=== PATIENT | male | born 1940 | race Caucasian/White ===

== ENCOUNTER → 2020-02-21 16:15 | Outpatient (CLI) | payer MEDICARE, SELFPAY ==
--- NOTE | ~2020-02-21 | XR_ITS ---
EXAMINATION: XR hand RT min 3V INDICATION: Trigger finger, hand pain TECHNIQUE: Three views of the right hand are obtained. COMPARISON: 06/14/2013 FINDINGS: There is unchanged moderate osteoarthritis at the first carpometacarpal joint. No fracture is identified. There is mild osteoarthritis in multiple interphalangeal joints. Calcified atheroscler osis is noted. IMPRESSION: 1. 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 Reviewed, dictated and finalized at location A.
--- NOTE | ~2020-02-21 | XR_ITS ---
EXAMINATION: XR finger 2nd RT min 2V INDICATION: Trigger finger TECHNIQUE: Four views of the right second finger are obtained. COMPARISON: None available FINDINGS: Bone alignment is normal. There is no fracture. There is moderate osteoarthritis of the int erphalangeal joint. Calcified atherosclerosis is noted. IMPRESSION: 1. Mild osteoarthritis without acute osseous abnormality. Reviewed, dictated and finalized at location A.
== END ==
PROVIDERS: PCP Internal Medicine; Visit Provider Specialist
DX: M65.30 Trigger finger, unspecified finger (principal); M19.041 Primary osteoarthritis, right hand
CPT/HCPCS: 73130; 73140

== ENCOUNTER 2025-04-05 10:33 | Outpatient (CLI) | payer MEDICARE, SELFPAY ==
--- OUTSIDE RECORDS SUMMARY | 2025-04-05 11:04 | XMS_ITS | Clinical Summary ---
Author Organization [facility] Address [address] [place] [address] Care Team Providers Care Rn Renal Name Role Phone Morteza Rudolph MD Primary Care Provider [phone] Source Comments [facility],non-owned Affiliates and Associated Physician Practices is amultiple site organization consisting of ambulatory clinics and hospital sitesin [place], [place], [place] and [place]. This disclosure is being madepursuant to the Care Everywhere program and may not contain all information available regarding this patient. Last updated 18.[facility] Allergies Active Allergy Reactions Criticality Noted Date Comments Grapeseed Extract Anaphylaxis High 12/05/2018 Medications * Be aware that medications may not be up to date on this document. Alwaysverify current medications with the patient. vardenafil (LEVITRA) 10 MG tablet Take 10 mg by mouth once as needed for Other Active Co-Enzyme Q-10 100 MG Take by mouth once daily Active metoprolol succinate XL 24hr (TOPROL XL) 25 MG tablet Take 12.5 mg by mouth 2 times daily Active B Complex-Biotin- FA (B COMPLETE PO) Take by mouth once daily Active aspirin EC (ECOTRIN) 81 MG tablet Take 81 mg by mouth once daily Active CRANBERRY-VITAM IN C-VITAMIN E PO Take 1,600 mg by mouth once daily Active lutein 20 MG capsule Take 20 mg by mouth once daily Active tamsulosin (FLOMAX) 0.4 MG capsule Take 0.4 mg by mouth once daily At the same time every day after a meal. 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 Gender Identity Not on file Sexual Orientation Not on file Last Filed Vital Signs Vital Sign Reading Time Taken Comments Blood Pressure 142/58 12/06/2018 11:18 AM CDT Pulse 97 12/06/2018 11:18 AM CDT Temperature 36.8 C (98.3 F) 12/06/2018 7:34 AM CDT Respiratory Rate 18 12/06/2018 11:18 AM CDT Oxygen Saturation 99% 12/06/2018 11:18 AM CDT Inhaled Oxygen Concentration - - Weight 75.8 kg (167 lb 3.2 oz) 12/05/2018 7:42 A M CDT Height 165.1 cm (5' 5) 12/05/2018 7:42 AM CDT Body Mass Index 27.82 12/05/2018 7:42 AM CDT Plan of Treatment Health Maintenance Due Date Last Done Comments DTAP/TDAP/TD VACCINES (1 - Tdap) 1960 PNEUMOCOCCAL VACCINE 50+ (1 of 1 - PCV) 1991 ZOSTER VACCINE (1 of 2) 1991 Respiratory Syncytial Virus (RSV) Vaccine Pt: or over 60 yrs (1 - 1-dose 75+ series) 2016 COVID-19 VACCINE ( - 2023-2 5 season) 2024 DEPRESSION SCREENING 08/02/2024 INFLUENZA VACCINE (#1) 2025 05/18/2018 HEPATITIS B VACCINE Aged Out No longe r eligible based on patient's age to complete this topic HIB VACCINE Aged Out No longer eligi ble based on patient's age to complete this topic HPV VACCINE Aged Out No longer eligi ble based on patient's age to complete this topic MENINGOCOCCAL (Group B) VACC INE SHARED DECISION-MAKING Aged Out No longer eligibl e based on patient's age to complete this topic MENINGOCOCCAL GROUPS A/C/Y/W VACCINE Aged Out No longer eligible b ased on patient's age to complete this topic Insurance [facility] [employer] Advance Directives * Full Code (Latest Code Status on File) Date Activated Date Inactivated Comments 12/05/2018 3:00 PM 12/06/2018 12:43 PM Care Teams Rn Renal Relationship Specialty Start Date End Date Morteza Rudolph MD PCP - General 05/16/08
--- OUTSIDE RECORDS SUMMARY | 2025-04-05 11:04 | XMS_ITS | Clinical Summary ---
Author Organization [facility] Address [address] [place] [address] Care Team Providers Care Alodize Machine Operator Name Role Phone Morteza Rudolph MD Primary Care Provider [phone] Morteza Rudolph DO Unavailable [phone] Allergies No known active allergies Medications cranberry conc-ascorbic acid 12,600-20 mg capsule 0 0 7 Active metoprolol (LOPRESSOR) 5 mg/5 mL injection inject 5 milliliter by intravenous route every 2 minutes for 3 doses 0 ampule 0 7 Active tamsulosin (FLOMAX) 0.4 mg capsule,extend ed release 24hr take 1 capsule by oral route every day 1/2 hour following the same meal each day 0 0 7 Active b complex vitamins (B COMPLETE) tablet 0 0 7 Active naproxen (NAPROSYN) 500 mg tablet take 1 tablet by oral route every day with food 60 3 7 Active lutein 20 mg capsule 20 mg. 0 0 7 Active vardenafil (LEVITRA) 10 mg tablet take 1 tablet by oral route every day as needed approximately 1 hour before sexual activity 0 0 7 Active aspirin (ASPIRIN LOW DOSE) 81 mg tablet take 1 tablet by oral route every day 0 0 7 Active atorvastatin (LIPITOR) 10 mg tablet take 1 tablet by oral route every day 0 0 7 Active coenzyme Q10 (CO Q-10) 100 mg capsule 100 mg. 0 0 7 Active vitamin B89-fylqp acid (FOLTRATE) 0.5-1 mg tablet take 1 tablet by oral route every day 0 0 7 Active Active Problems Problem Noted Date Diagnosed Date Abdominal hernia 12/18/2014 Abscess of chest wall 12/18/2014 Pain of sternum 06/12/2014 History of coronary artery bypass surgery 2013 Aortic valve stenosis 03/14/2014 Medical History Medical History Date Comments Malignant neoplasm of skin Cance r, skin; Comments: LOU 12/17/2016 - Hx Other Medical Heart Valve Rep lacment; Comments: LOU 12/17/2016 - Social History Tobacco Use Types Packs/Day Years Used Date Smoking Tobacco: Never Assessed Sex and Gender Information Value Date Recorded Sex Assigned at Not on file 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 Gender Identity Not on file Sexual Orientation Not on file Obstetrics History Last Filed Vital Signs Vital Sign Reading Time Taken Comments Blood Pressure 126/74 06/20/2019 2:46 PM WELCOME CENTER ATTENDANT Pulse 76 06/20/2019 2:46 PM WELCOME CENTER ATTENDANT Temperature 36.6 C (97.9 F) 06/20/2019 2:46 PM WELCOME CENTER ATTENDANT Respiratory Rate 14 06/20/2019 2:46 PM WELCOME CENTER ATTENDANT Oxygen Saturation - - Inhaled Oxygen Concentration - - Weight 76.2 kg (168 lb) 06/20/2019 2:46 PM WELCOME CENTER ATTENDANT Height 157.5 cm (5' 2) 06/20/2019 2:46 PM WELCOME CENTER ATTENDANT Body Mass Index 30.73 06/20/2019 2:46 PM WELCOME CENTER ATTENDANT Plan of Treatment Not on file Insurance [facility] [place] [address] Care Teams Alodize Machine Operator Relationship Specialty Start Date End Date Morteza Rudolph MD PCP - General 04/13/17 Morteza Rudolph DO [address] [place] [id number] 04/13/17
--- OUTSIDE RECORDS SUMMARY | 2025-04-05 11:04 | XMS_ITS | Encounter Summary ---
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 Gender Identity Not on file Sexual Orientation Not on file documented as of this encounter Plan of Treatment Not on file documented as of this encounter Procedures Procedure Name Priority Date/Time Associated Diagnosis Comments DERMATOPATHOLOGY Routine 01/03/2020 12:0 0 AM CDT documented in this encounter Results * DERMATOPATHOLOGY (01/03/2020 12:00 AM CDT) Case Report Dermatopathology Report Case: [id number] Authorizing Provider: Sharda Upton MD Collected: 01/03/2020 12:00 AM Ordering Location: [facility] Received: 01/04/2020 12:38 PM Pathologist: Kurt Brice MD Specimen: Skin, left nasal dorsum 0 5:25 PM CDT DERMATOPATHOLOGY LABORATORY Final Diagnosis Specimen A. SKIN, left nasal dorsum: BASAL CELL CARCINOMA (C44.311) (see microscopic description and comment) 0 5:25 PM CDT DERMATOPATHOLOGY LABORATORY at 1725 CDT Clinical History Basal cell carcinoma vs dermal nevus vs folliculitis. 0 5:25 PM CDT DERMATOPATHOLOGY LABORATORY Gross Description Specimen A: Received is one formalin filled container labeled with the patient's name and designated left nasal dorsum. The specimen consists of a shave biopsy measuring 3x3x1 mm. Jar 0. 0 5:25 PM CDT DERMATOPATHOLOGY LABORATORY Microscopic Description Specimen A. SKIN, left nasal dorsum: The specimen consists of aggregates of basaloid cells, located within the superficial dermis, with high nuclear to cytoplasmic ratio and peripheral palisading. COMMENT: The small size of the specimen limits subtyping of the lesion. Additional deeper sections were obtained and reviewed. 0 5:25 PM CDT DERMATOPATHOLOGY LABORATORY Disclaimer An external and internal positive and negative controls are appropriate for the histochemical, immunohistochemical and immunofluorescence stain(s) in this case (if any), except where stated explicitly. The performance characteristics of the stain(s) cited in this report were developed and its performance characteristic determined by the Dermatopathology Laboratory at [facility], directed by Dr. Aurelio Brice. These tests need not be, and therefore are not, approved by the [place] Food and Drug Administration. The tests are used for clinical purposes. Billing Codes Specimen Charges Stain Charges 30804 1 0 5:25 PM CDT DERMATOPATHOLOGY LABORATORY Embedded Images 0 5:25 PM CDT DERMATOPATHOLOGY LABORATORY Pathology/Cytolog y TISSUE SPECIMEN FROM SKIN / Unknown 01/03/2020 01/04/2020 12:38 PM CDT us Sharda Upton MD LAB - PATHOLOGY/CYTOLOGY ORDERABLES Final Result DERMATOPATHOLOGY LABORATORY [facility] - Department of Dermatology [facility]/[address] [place] [address], [facility] [phone] documented in this encounter Visit Diagnoses Not on filedocumented in this encounter Care Teams Warehouse Shipping Associate Relationship Specialty Start Date End Date Morteza Rudolph MD PCP - General 05/16/08 documented as of this encounter
== END 2025-04-05 10:34 | disposition home or self-care (01) ==
PROVIDERS: PCP Internal Medicine; Visit Provider Internal Medicine Cardiovascular Disease
DX: I25.10 Atherosclerotic heart disease of native coronary artery without angina pectoris (principal)
CPT/HCPCS: 83695

== ENCOUNTER 2025-06-22 09:33 | Outpatient (CLI) | payer MEDICARE, SELFPAY ==
--- OUTSIDE RECORDS SUMMARY | 2025-06-22 09:37 | XMS_ITS | Clinical Summary ---
Author Organization [facility] Address [address] [place] [address] Care Team Providers Care Shutdown Planner Name Role Phone Morteza Rudolph MD Primary Care Provider [phone] Morteza Rudolph DO Unavailable [phone] Allergies No known active allergies Medications cranberry [...] 100 mg. 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 Gender Identity Not on file Sexual Orientation Not on file Last Filed Vital Signs Vital Sign Reading Time Taken Comments Blood Pressure 126/74 06/20/2019 2:46 PM FUNERAL LIMOUSINE DRIVER Pulse 76 06/20/2019 2:46 PM FUNERAL LIMOUSINE DRIVER Temperature 36.6 C (97.9 F) 06/20/2019 2:46 PM FUNERAL LIMOUSINE DRIVER Respiratory Rate 14 06/20/2019 2:46 PM FUNERAL LIMOUSINE DRIVER Oxygen Saturation - - Inhaled Oxygen Concentration - - Weight 76.2 kg (168 lb) 06/20/2019 2:46 PM FUNERAL LIMOUSINE DRIVER Height 157.5 cm (5' 2) 06/20/2019 2:46 PM FUNERAL LIMOUSINE DRIVER Body Mass Index 30.73 06/20/2019 2:46 PM FUNERAL LIMOUSINE DRIVER Plan of Treatment Not on file Insurance [facility] MEDICARE ADVANTAGE Care Teams Shutdown Planner Relationship Specialty Start Date End Date Morteza Rudolph MD PCP - General 04/13/17 Morteza Rudolph DO [address] [place] [id number] 04/13/17
--- OUTSIDE RECORDS SUMMARY | 2025-06-22 09:37 | XMS_ITS | Encounter Summary ---
Author Organization [facility] Address [address] [place] [address] Care Team Providers Care Rail Transit Operator Name Role Phone Morteza Rudolph MD Primary Care Provider [phone] Encounter Details Date Type Department Care Team (Late st Contact Info) Description 01/04/2020 Lab Requisition [facility] Lab [address] [place] [address] [place] [address] [place] [address] Social History Tobacco Use Types Packs/Day Years Used Date Smoking Tobacco: Never Assessed Sex and Gender Information Value Date Recorded Sex Assigned at Not on file 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 Gender Identity Not on file Sexual Orientation Not on file documented as of this encounter Plan of Treatment Not on file documented as of this encounter Procedures Procedure Name Priority Date/Time Associated Diagnosis Comments DERMATOPATHOLOGY Routine 01/03/2020 12:0 0 AM CDT documented in this encounter Results * DERMATOPATHOLOGY (01/03/2020 12:00 AM CDT) Case Report Dermatopathology Report Case: [id number] Authorizing Provider: Sharda Upton MD Collected: 01/03/2020 12:00 AM Ordering Location: [facility] Lab Received: 01/04/2020 12:38 PM Pathologist: [...] characteristic determined by the Dermatopathology Laboratory at [facility], directed by Dr. Aurelio Brice. These tests need not be, and therefore are not, approved by the [place] Food and Drug Administration. The tests are used for clinical purposes. Billing Codes Specimen Charges Stain Charges 69914 1 0 5:25 PM CDT DERMATOPATHOLOGY LABORATORY Embedded Images 0 5:25 PM CDT DERMATOPATHOLOGY LABORATORY Pathology/Cytolog y TISSUE SPECIMEN FROM SKIN / Unknown 01/03/2020 01/04/2020 12:38 PM CDT us Sharda Upton MD LAB - PATHOLOGY/CYTOLOGY ORDERABLES Final Result DERMATOPATHOLOGY LABORATORY [facility] - Department of Dermatology Decision Support Manager Center/[address] [place] [address], [facility] [phone] documented in this encounter Visit Diagnoses Not on filedocumented in this encounter Care Teams Rail Transit Operator Relationship Specialty Start Date End Date Morteza Rudolph MD PCP - General 05/16/08 documented as of this encounter
--- OUTSIDE RECORDS SUMMARY | 2025-06-22 09:37 | XMS_ITS | Clinical Summary ---
Author Organization [facility] Address [address] [facility] [place] [address] Care Team Providers Care Elect Equip Maint Eng Name Role Phone Morteza Rudolph MD Primary Care Provider [phone] Source Comments [facility],non-owned Affiliates and Associated Physician Practices is amultiple site organization consisting of ambulatory clinics and hospital sitesin [place], [place], [place] and [place]. This disclosure is being madepursuant to the Care Everywhere program and may not contain all information available regarding this patient. Last updated 18.[facility] Allergies Active Allergy Reactions Criticality Noted Date [...] Problem Noted Date Diagnosed Date CAD in table mountain artery 12/05/2018 Immunizations Immunization Administration Dates Next Due INFLUENZA VACCINE, QUADR. 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 [id number] [place] [id number] Advance Directives * Full Code (Latest Code Status on File) Date Activated Date Inactivated Comments 12/05/2018 3:00 PM 12/06/2018 12:43 PM Care Teams Elect Equip Maint Eng Relationship Specialty Start Date End Date Morteza Rudolph MD PCP - General 05/16/08
--- OUTSIDE RECORDS SUMMARY | 2025-06-22 09:38 | XMS_ITS | Data Portability ---
Author Organization [place] [facility], Main Office Address [address] [place] [address] Care Team Providers Care Wrapper Stitcher Name Role Phone DAVIDSON RUDOLPH Primary Care Provider [phone] DAVIDSON RUDOLPH Referring Provider [phone] Assessment Encounter Date Assessment Date Assessment LastModified by Organization Details LastModified Time 03/08/2023 03/08/2023 Continue current therapy blood work has been ordered diagnosis have been discussed all questions have been answered clinically stable follow-up 6 months [email or web address] Not available 03/08/2023 11:14:44 07/21/2023 07/21/2023 Impression: 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 I have discussed options with him. I have offered him a cortisone shot. He had a shot in his elbows years ago which cause hiccups today after. He has had cortisone shots for trigger fingers and his hands and they were very painful and never seemed to help the end up having A1 brenna releases there on most of his digits. I have discussed risk of side effects including risk of infection with him. He would like to try this at my recommendation. After ChloraPrep prep, 10 cc of clear light yellow fluid were aspirated from the right knee and 80 mg give Kenalog and 4 cc 0.5% ropivacaine injected. I had a long discussion with him explaining his condition to him and explained that activities involve weight-bearing on the bent knee are going to tend aggravate this problem such as heels ladders steps squatting stooping. Physical therapy aggravated the problem because they were working on quadriceps strengthening and I would recommend he go therapy 1 more time with a new prescription to work on core strengthening hip abduction external rotation strengthening and hamstring and quadriceps stretching but no quadriceps strengthening. I would recommend he do this exercise program for both knees long-term. I will see him back in 6 weeks to assess his progress. If he is doing much better he can simply call us and let us know that he is improved. 30 minutes were spent total care this patient more than half the time spent in qeej-cd-ubnj care. Not available 07/21/2023 10:12:24 09/02/2023 09/02/2023 Impression: Patient has moderately severe patellofemoral arthritis this right knee. He has no evidence of neurogenic weakness in his quadriceps and I believe his giving way is due to be patellofemoral arthritis causing pain. I explained to him at length how the pressure behind the kneecap is 6-7 times body weight in a deep squat and is very common for patients to note a buckling sensation when the quadriceps reflexively suddenly eases up due to the discomfort during a deep squat. I have discussed other strategies with him which would include losing weight. We discussed avoiding simple carbs and sugary foods. We discussed a course of physical therapy focusing on hip abduction core strengthening and hamstring quadriceps stretching. He could consider taking a low-dose nonsteroidal anti-inflammatory medication. patient has his eye age are at higher risk for side effects. 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 Occasionally will take couple of ibuprofen which she did yesterday. I would recommend that he discuss this with Dr. Rudolph who is going to be most from there with his past medical history. He is planning on a snow shoeing excursion which will be fairly level ground in late September. I have explained him that stairs and hills will both cause high pressures on the kneecap and exacerbate his symptoms and these can be avoided that would be beneficial for him. I will see him back in 5 weeks assess his progress and would like another cortisone shot that time we can give that to him. 30 minutes were spent total care this patient more than half the time spent in [id number]-[id number] care. Not available 09/02/2023 10:46:58 Plan of Treatment Reminders Order Date Submit Date Provider Last Modified By Organization Details Last Modified Time Details Appointments None recorded. Lab CMP, serum or plasma 2022 023 [facility] (Lab), [address] [place], [address], 3 13:37:36 lipid panel, serum 2022 023 [facility] (Lab), [address] [place], [address], 3 13:37:46 CBC w/ auto diff 2022 023 [facility] (Lab), [address] [place], [address], 12:55:43 Referral None recorded. Procedures injection/a spiration joint/bursa (PROC) - in office procedure, administere d by provider 2022 023 [email or web address] In-Office Order, Internal Use Only DO Not Attach Compendium DO Not Attach Compendium, Do Not Delete/merge, [id number] 3 10:04:04 Surgeries None recorded. Imaging XR, knee 2022 023 [email or web address] [facility] [place], [address], [place], [address], 3 14:13:48 Medication Orders Kenalog 10 mg/mL suspension for injection 2022 023 [id number], [address], [place], [place], [id number], 3 13:06:36 ropivacaine (PF) 5 mg/mL (0.5 %) injection solution 2022 023 [id number], [address], [place], [place], [id number], 3 13:06:36 Patient TargetsNo targets recorded. Patient InstructionsNo instructions recorded. Reason for Referral None Reported. Results Created Date Observation Date Name Description Value Unit Range Abnormal Flag Note LastModifiedBy Organization Detail LastModifiedTime 03/08/2003/08/2023 CBC/C OMPLE TE BLD COUNT W/DIF F white blood cells 6.1 x10'3 /uL 4.2-10 .8 Not Available [facility] (Lab) [address] [place], [address], 03/08/2023 12:55:43 03/08/20 23 03/08/2023 CBC/C OMPLE TE BLD COUNT W/DIF F red blood cells 4.08 x10'6 /uL 4.10-5 .80 low Not Available [facility] (Lab) [address] [place], [address], 03/08/2023 12:55:43 03/08/20 23 03/08/2023 CBC/C OMPLE TE BLD COUNT W/DIF F hemoglobin 12.4 g/dL 13.2-1 7.0 low Not Available [facility] (Lab) [address] [place], [address], 03/08/2023 12:55:43 03/08/20 23 03/08/2023 CBC/C OMPLE TE BLD COUNT W/DIF F hematocrit 38.2 % 39.3-5 0.0 low Not Available [facility] (Lab) [address] [place], [address], 03/08/2023 12:55:43 03/08/20 23 03/08/2023 CBC/C OMPLE TE BLD COUNT W/DIF F mean red cell volume 93.6 fL 80.0-9 7.0 Not Available [facility] (Lab) [address] [place], [address], 03/08/2023 12:55:43 03/08/20 23 03/08/2023 CBC/C OMPLE TE BLD COUNT W/DIF F mean red cell hemoglobin 30.4 pg 27.0-3 3.0 Not Available [facility] (Lab) [address] [place], [address], 03/08/2023 12:55:43 03/08/20 23 03/08/2023 CBC/C OMPLE TE BLD COUNT W/DIF F mean RBC HGB concentratio n 32.5 g/dL 31.0-3 6.0 Not Available [facility] (Lab) [address] [place], [address], 03/08/2023 12:55:43 03/08/20 23 03/08/2023 CBC/C OMPLE TE BLD COUNT W/DIF F red cell distribution width 12.5 % 11.8-1 5.5 Not Available [facility] (Lab) [address] [place], [address], 03/08/2023 12:55:43 03/08/20 23 03/08/2023 CBC/C OMPLE TE BLD COUNT W/DIF F platelets 163 x10'3 /uL 150-40 0 Not Available [facility] (Lab) [address] [place], [address], 03/08/2023 12:55:43 03/08/20 23 03/08/2023 CBC/C OMPLE TE BLD COUNT W/DIF F mean platelet volume 12.2 fL 9.0-12 .4 Not Available [facility] (Lab) [address] [place], [address], 03/08/2023 12:55:43 03/08/20 23 03/08/2023 CBC/C OMPLE TE BLD COUNT W/DIF F neutrophils 46.7 % 39.0-7 2.0 Not Available [facility] (Lab) [address] [place], [address], 03/08/2023 12:55:43 03/08/20 23 03/08/2023 CBC/C OMPLE TE BLD COUNT W/DIF F lymphocytes 40.4 % 16.0-4 7.0 Not Available [facility] (Lab) [address] [place], [address], 03/08/2023 12:55:43 03/08/20 23 03/08/2023 CBC/C OMPLE TE BLD COUNT W/DIF F monocytes 8.9 % 5.0-12 .0 Not Available [facility] (Lab) [address] [place], [address], 03/08/2023 12:55:43 03/08/20 23 03/08/2023 CBC/C OMPLE TE BLD COUNT W/DIF F eosinophils 3.5 % 1.0-7. 0 Not Available [facility] (Lab) [address] [place], [address], 03/08/2023 12:55:43 03/08/20 23 03/08/2023 CBC/C OMPLE TE BLD COUNT W/DIF F basophils 0.3 % 0.0-2. 0 Not Available [facility] (Lab) [address] [place], [address], 03/08/2023 12:55:43 03/08/20 23 03/08/2023 CBC/C OMPLE TE BLD COUNT W/DIF F immature granulocytes 0.2 % 0.00-0 .50 Not Available [facility] (Lab) [address] [place], [address], 03/08/2023 12:55:43 03/08/20 23 03/08/2023 CBC/C OMPLE TE BLD COUNT W/DIF F neutrophils, absolute count 2.84 x10'3 /uL 1.5-8. 0 Not Available [facility] (Lab) [address] [place], [address], 03/08/2023 12:55:43 03/08/20 23 03/08/2023 CBC/C OMPLE TE BLD COUNT W/DIF F lymphocytes, absolute count 2.45 x10'3 /uL 1.07-3 .43 Not Available [facility] (Lab) [address] [place], [address], 03/08/2023 12:55:43 03/08/20 23 03/08/2023 CBC/C OMPLE TE BLD COUNT W/DIF F monocytes, absolute count 0.54 x10'3 /uL 0.29-0 .99 Not Available [facility] (Lab) [address] [place], [address], 03/08/2023 12:55:43 03/08/20 23 03/08/2023 CBC/C OMPLE TE BLD COUNT W/DIF F eosinophils, absolute count 0.21 x10'3 /uL 0.02-0 .53 Not Available [facility] (Lab) [address] [place], [address], 03/08/2023 12:55:43 03/08/20 23 03/08/2023 CBC/C OMPLE TE BLD COUNT W/DIF F basophils, absolute count 0.02 x10'3 /uL 0.01-0 .08 Not Available [facility] (Lab) [address] [place], [address], 03/08/2023 12:55:43 03/08/2003/08/2023 CBC/C OMPLE TE BLD COUNT W/DIF F immature granulocytes ,absolute 0.01 x10'3 /uL 0.00-0 .05 Not Available [facility] (Lab) [address] [place], [address], 03/08/2023 12:55:43 03/08/20 23 03/08/2023 CBC/C OMPLE TE BLD COUNT W/DIF F nucleated red blood cells 0.0 % -0 Not Available [facility] (Lab) [address] [place], [address], 03/08/2023 12:55:43 03/08/20 23 03/08/2023 CBC/C OMPLE TE BLD COUNT W/DIF F NRBC# 0.00 x10'3 /uL Not Available [facility] (Lab) [address] [place], [address], 03/08/2023 12:55:43 03/08/20 23 03/08/2023 COMPR EHENS GONSALO METAB OLIC PANEL sodium 139 mmol/ L 137-14 5 Not Available [facility] (Lab) [address] [place], [address], 03/08/2023 13:37:36 03/08/20 23 03/08/2023 COMPR EHENS GONSALO METAB OLIC PANEL potassium 4.8 mmol/ L 3.5-5. 1 Not Available [facility] (Lab) [address] [place], [address], 03/08/2023 13:37:36 03/08/20 23 03/08/2023 COMPR EHENS GONSALO METAB OLIC PANEL chloride 105 mmol/ L 98-107 Not Available [facility] (Lab) [address] [place], [address], 03/08/2023 13:37:36 03/08/20 23 03/08/2023 COMPR EHENS GONSALO METAB OLIC PANEL carbon dioxide 31 mmol/ L 22-30 high Not Available [facility] (Lab) [address] [place], [address], 03/08/2023 13:37:36 03/08/20 23 03/08/2023 COMPR EHENS GONSALO METAB OLIC PANEL anion gap 7.8 mmol/ L 14-22 low Not Available [facility] (Lab) [address] [place], [address], 03/08/2023 13:37:36 03/08/20 23 03/08/2023 COMPR EHENS GONSALO METAB OLIC PANEL glucose 118 mg/dL 70-99 high Not Available [facility] (Lab) [address] [place], [address], 03/08/2023 13:37:36 03/08/20 23 03/08/2023 COMPR EHENS GONSALO METAB OLIC PANEL BUN 23 mg/dL 8-19 high Not Available [facility] (Lab) [address] [place], [address], 03/08/2023 13:37:36 03/08/20 23 03/08/2023 COMPR EHENS GONSALO METAB OLIC PANEL creatinine 0.73 mg/dL 0.66-1 .25 Not Available [facility] (Lab) [address] [place], [address], 03/08/2023 13:37:36 03/08/20 23 03/08/2023 COMPR EHENS GONSALO METAB OLIC PANEL GFR >60 Refer ence Range : [place]more ge GFR Healt hy Adult : >60 mL/mi n/1.7 3 m2 Chron ic Kidne y Disea se: 15-60 mL/mi n/1.7 3 m2 Kidne y Failu re: <15/m L/min /1.73 m2 www.n iddk. nih.g ov The MDRD study equat ion has not been valid ated in child olesya <18 years of age; pregn ant women ; the elder ly >85 years of age; or in some racia l or ethni c subgr oups, such as Hisoh nics. Outsi de the valid ated keri eters , estim ated GFR is less accur ate, requi ring clini miles judgm ent on a case- by-ca se basis . Clini miles inter preta tion for other races and ages must be made by the clini shan. The MDRD study equat ion has not been valid ated for the evalu ation of serum creat inine relat ed to nutri lindsey l statu s or medic ation usage . For perso ns <18 years of age, a pedia tric GFR calcu lator is avail able on the [facility] websi te: https ://neelam philip.o any/micah ofess ional s/kdo qi/gf r_cal culat or Not Available [facility] (Lab) [address] [place], [address], 03/08/2023 13:37:36 03/08/20 23 03/08/2023 COMPR EHENS GONSALO METAB OLIC PANEL alkaline phosphatase 59 U/L 38-126 Not Available [facility] (Lab) [address] [place], [address], 03/08/2023 13:37:36 03/08/20 23 03/08/2023 COMPR EHENS GONSALO METAB OLIC PANEL alanine aminotransfe rase 15 U/L 0-50 Not Available [facility] (Lab) [address] [place], [address], 03/08/2023 13:37:36 03/08/20 23 03/08/2023 COMPR EHENS GONSALO METAB OLIC PANEL aspartate aminotransfe rase 28 U/L 15-46 Not Available [facility] (Lab) [address] [place], [address], 03/08/2023 13:37:36 03/08/20 23 03/08/2023 COMPR EHENS GONSALO METAB OLIC PANEL bilirubin, total 0.40 mg/dL 0.20-1 .30 Not Available [facility] (Lab) [address] [place], [address], 03/08/2023 13:37:36 03/08/20 23 03/08/2023 COMPR EHENS GONSALO METAB OLIC PANEL calcium 8.9 mg/dL 8.4-10 .2 Not Available [facility] (Lab) [address] [place], [address], 03/08/2023 13:37:36 03/08/20 23 03/08/2023 COMPR EHENS GONSALO METAB OLIC PANEL total protein 6.7 g/dL 6.3-8. 2 Not Available [facility] (Lab) [address] [place], [address], 03/08/2023 13:37:36 03/08/20 23 03/08/2023 COMPR EHENS GONSALO METAB OLIC PANEL albumin 4.1 g/dL 3.0-4. 4 Not Available [facility] (Lab) [address] [place], [address], 03/08/2023 13:37:36 03/08/20 23 03/08/2023 COMPR EHENS GONSALO METAB OLIC PANEL globulin 2.6 g/dL 2.6-4. 2 Not Available [facility] (Lab) [address] [place], [address], 03/08/2023 13:37:36 03/08/20 23 03/08/2023 COMPR EHENS GONSALO METAB OLIC PANEL A/G ratio 1.6 ratio 1.0-2. 0 Not Available [facility] (Lab) [address] [place], [address], 03/08/2023 13:37:36 03/08/20 23 03/08/2023 LIPID PANEL cholesterol 136 mg/dL 140-19 9 low NIH TELLO NSUS RECOM MENDA TION FOR ALEXYS STERO L: ADULT CHILD LOW RISK: <200 <170 BORDE RLINE : <200- 239 ----- HIGH RISK: >240 >200 Not Available [facility] (Lab) [address] [place], [address], 03/08/2023 13:37:46 03/08/2003/08/2023 LIPID PANEL triglyceride s 92 mg/dL 0-150 NIH TELLO NSUS REPOR T RECOM MENDA TION FOR TRIGL YCERI MOLINA: ADULT CHILD LOW RISK: <150 ----- BODER LINE: 150-1 99 ----- HIGH RISK: >200 ----- Not Available [facility] (Lab) [address] [place], [address], 03/08/2023 13:37:46 03/08/20 23 03/08/2023 LIPID PANEL HDL cholesterol 46 mg/dL 40- Not Available [facility] (Lab) [address] [facility] [place], [address], 03/08/2023 13:37:46 03/08/20 23 03/08/2023 LIPID PANEL LDL cholesterol, calculated 72 mg/dL 0-130 NIH TELLO NSUS REPOR T RECOM MENDA TIONS FOR LDL: ADULT CHILD LOW RISK <130 <110 (OPTI MAL LDL) <100 ----- BORDE RLINE : 130-1 59 ----- HIGH RISK: >160 >130 A TRIGL YCERI DE RESUL T >400 INVAL IDATE S THE CALCU LATIO N FOR LDL FRACT IONAT ION - THE LDL RESUL T WILL NOT BE REPOR PETER. Not Available [facility] (Lab) [address] [place], [address], 03/08/2023 13:37:46 04/12/20 24 04/12/2024 POTAS SIUM potassium 4.6 mmol/ L 3.5-5. 1 Not Available [facility] (Lab) [address] [place], [address], 04/12/2024 11:48:27 07/08/20 22 XR, hand, 3 or more view No observ ation record ed. [id number] [facility] [place] [address], [place], [address], 09/30/2022 06:22:18 07/08/20 22 XR, wrist , 3 or more view No observ ation record ed. [id number] [facility] [place] [address], [place], [address], 09/30/2022 06:22:18 07/21/20 22 07/21/2022 imagi ng/di agnos tic resul t No observ ation record ed. [email or web address]. [id number] [facility] [address], [place], [address], 09/30/2022 06:22:18 07/28/20 22 07/28/2022 cardi ac monit or No observ ation record ed. [email or web address]. [id number] [facility] [address], [place], [address], 09/30/2022 06:22:18 07/21/20 23 XR, knee No observ ation record ed. [email or web address] [facility] [place] [address] [facility] [address], [place], [address], 07/21/2023 10:09:36 11/19/19 24 11/18/2023 , [facility] ardio gram No observ ation record ed. [email or web address] [facility] [address], [place], [address], 04/11/2024 17:57:08 12/01/19 24 12/01/2023 XR, hand [facility] [address] [place] [address] [phone] Patien t Name: CHERRI MIGUEL D V Access ion #: [id number] Sex: M : 1939 0 Locati on: RAD Attend ing Physic cehtan: JORDY RUDOLPH Orderi ng Physic chetan: JORDY RUDOLPH Exam Date: 12/01/19 24 9:51 AM Exam Name: XR HAND RT Admitt ing Diagno sis(es ): RADIOL OGY REPORT - FINAL EXAM: XR HAND RT HISTOR Y: FALL/P AIN 83-yea r-old male with right hand pain after fall. COMPAR TERE: Radiog raphs dated 12/07/ 2022. TECHNI QUE: Five views of the right hand were perfor med. FINDIN GS: There are small fractu res of the heads of the right 3rd and 4th metaca rpal bones medial ly, best seen on the obliqu e film. No other eviden ce of fractu re about the right hand. There is advanc ed osteoa rthrit is of the 1st CMC joint. There is mild to modera te osteoa rthrit is of the IP joints of the finger s and 1st MCP joint. There are promin ent athero sclero tic calcif icatio ns of the radial and ulnar arteri es. There is soft tissue swelli ng barrel ribs solderer iorly. Page 1 of 2 [facility] Patiheide t Name: MIGUEL HARLEY V Access ion #: [id number] Sex: M : 1939 0 Exam Date: 12/01/19 24 9:51 AM Exam Name: XR HAND RT Admitt ing Diagno sis(es ): IMPRES TENNILLE: 1. Small mildly displa roddy fractu res of the medial aspect s of the heads of the right 3rd and 4th metaca rpal bones. 2. 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 Create d and electr onical ly signed by: Chaitanya jose MD Signed Date: 12/01/19 11:15 AM (CT) Dictat ed by: Chaitanya jose MD (CT) (CT) Page 2 of 2 [email or web address] [facility] (Imaging) [address] [place], [address], 02/15/2024 08:58:49 12/01/19 24 12/01/2023 XR, wrist , 3 [facility] [address] [place] [address] [phone] Patiheide t Name: MIGUEL HARLEY V Access ion #: [id number] Sex: M : 1939 0 Locati on: RAD Attend ing Physic chetan: JORDY RUDOLPH Orderi ng Physic chetan: JORDY RUDOLPH Exam Date: 12/01/19 9:51 AM Exam Name: XR WRIST RT 3V+ Admitt ing Diagno sis(es ): RADIOL OGY REPORT - FINAL EXAM: XR WRIST RT 3V+ HISTOR Y: FALL/P AIN 83-yea r-old male with right wrist pain after fall. COMPAR TERE: Hand radiog raphs from the same day. TECHNI QUE: 4 views of the right wrist were perfor med. FINDIN GS: See below. IMPRES TENNILLE: 1. No acute fractu res are identi fied about the carpal bones, distal radius , or distal ulna. 2. Mildly displa roddy fractu res of the heads of the right 3rd and 4th Page 1 of 2 [facility] Milagro t Name: MIGUEL HARLEY V Access ion #: [id number] Sex: M : 1939 0 Exam Date: 12/01/19 9:51 AM Exam Name: XR WRIST RT 3V+ Admitt ing Diagno sis(es ): metaca rpal bones are better charac terize d on hand radiog raphs from the same day. 3. 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 4. Athero sclero tic calcif icatio ns of the radial and ulnar arteri es. Create d and electr onical ly signed by: Chaitanya jose MD Signed Date: 12/01/19 11:16 AM (CT) Dictat ed by: Chaitanya jose MD (CT) (CT) Page 2 of [email or web address] [place] [address] (Imaging) [address] [place] [address], [address], 02/15/2024 08:58:49 12/01/19 24 12/01/2023 XR, fernando carlos [facility] [address] [address] [phone] Patiheide t Name: MIGUEL HARLEY V Access ion #: [id number] Sex: M : 1939 0 Locati on: RAD Attend ing Physic chetan: JORDY RUDOLPH Orderi ng Physic chetan: JORDY RUDOLPH Exam Date: 12/01/19 9:51 AM Exam Name: XR SHOULD ER RT Admitt ing Diagno sis(es ): RADIOL OGY REPORT - FINAL EXAM: XR SHOULD ER RT HISTOR Y: FALL/P AIN 83-yea r-old male with right should er pain after fall. COMPAR TERE: Radiog raphs dated 2018. TECHNI QUE: Four views of the right should er were perfor med. FINDIN GS: No acute fractu re or disloc ation are identi fied about the right should er. There is acromi oclavi cular hypert rophy with near comple te loss of subacr omial space. 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 IMPRES TENNILLE: 1. No acute fractu re of the right should er. Page 1 of 2 [facility] Milagro t Name: MIGUEL HARLEY V Access ion #: [id number] Sex: M : 1939 0 Exam Date: 12/01/19 9:51 AM Exam Name: XR SHOULD ER RT Admitt ing Diagno sis(es ): 2. Acromi oclavi cular hypert rophy and loss of subacr omial space sugges tive of signif icant rotato r cuff tendin opathy . Create d and electr onical ly signed by: Chaitanya jose MD Signed Date: 12/01/19 11:18 AM (CT) Dictat ed by: Chaitanya jose MD (CT) (CT) Page 2 of [address] (Imaging) [address] [place], [address], 02/15/2024 08:58:50 01/17/20 24 01/17/2024 myoca rdial perfu tennille study w/ wall motio n (PROC ) No observ ation record ed. [email or web address] [facility] [address], [place], [address], 04/12/2024 12:44:51 05/27/20 24 11/19/2023 imagi ng/di agnos tic resul t No observ ation record ed. [facility] [address] [facility] [address], [place], [address], 05/27/2024 11:23:14 05/27/20 24 11/19/2023 imagi ng/di agnos tic resul t No observ ation record ed. [facility] [address] , [place], [address], 05/27/2024 11:34:11 06/20/20 25 04/09/2025 avery r monit or No observ ation record ed. [email or web address] [facility] [address], [place], [address], 06/21/2025 12:37:06 06/20/20 25 04/10/2025 US, echoc ardio gram, trans thora cic, compl ete No observ ation record ed. [email or web address] [facility] [address] , [place], [address], 06/21/2025 12:37:07 Result Notes Documentation Provider Name and Address Organization Details Recorded Time Xr, Hand : [facility] [address] [place] [address] Patient Name: DAVID HARLEY V Sex: M : 1940 Location: [facility] Attending Physician: DAVIDSON RUDOLPH Ordering Physician: DAVIDSON RUDOLPH Exam Date: 12/01/2023 9:51 AM Exam Name: XR HAND RT Admitting Diagnosis(es): RADIOLOGY REPORT - FINAL EXAM: XR HAND RT HISTORY: FALL/PAIN 83-year-old male with right hand pain after fall. COMPARISON: Radiographs dated 07/08/2022. TECHNIQUE: Five views of the right hand were performed. FINDINGS: There are small fractures of the heads of the right 3rd and 4th metacarpal bones medially, best seen on the oblique film. No other evidence of fracture about the right hand. 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 There is mild to moderate osteoarthritis of the IP joints of the fingers and 1st MCP joint. There are prominent atherosclerotic calcifications of the radial and ulnar arteries. There is soft tissue swelling posteriorly. Page 1 of 2 [facility] Patient Name: DAVID HARLEY V Sex: M : 1940 Exam Date: 12/01/2023 9:51 AM Exam Name: XR HAND RT Admitting Diagnosis(es): IMPRESSION: 1. Small mildly displaced fractures of the medial aspects of the heads of the right 3rd and 4th metacarpal bones. 2. Osteoarthritis of the hand and wrist. Created and electronically signed by: Chaitanya Marcus MD Signed Date: 12/01/2023 11:15 AM (CT) Dictated by: Chaitanya Marcus MD (CT) (CT) Page 2 of 2 Genie Inman APRN [address] [facility] [address], [address], [facility] 02/15/2024 08:58:49 Xr, Wrist, 3 Or More View : [facility] [address] [place] [address] Patient Name: DAVID HARLEY V Sex: M : 1940 Location: [facility] Attending Physician: DAVIDSON RUDOLPH Ordering Physician: DAVIDSON RUDOLPH Exam Date: 12/01/2023 9:51 AM Exam Name: XR WRIST RT 3V+ Admitting Diagnosis(es): RADIOLOGY REPORT - FINAL EXAM: XR WRIST RT 3V+ HISTORY: FALL/PAIN 83-year-old male with right wrist pain after fall. COMPARISON: Hand radiographs from the same day. TECHNIQUE: 4 views of the right wrist were performed. FINDINGS: See below. IMPRESSION: 1. No acute fractures are identified about the carpal bones, distal radius, or distal ulna. 2. Mildly displaced fractures of the heads of the right 3rd and 4th Page 1 of 2 [facility] Patient Name: DAVID HARLEY V Sex: M : 1940 Exam Date: 12/01/2023 9:51 AM Exam Name: XR WRIST RT 3V+ Admitting Diagnosis(es): metacarpal bones are better characterized on hand radiographs from the same day. 3. 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 4. Atherosclerotic calcifications of the radial and ulnar arteries. Created and electronically signed by: Chaitanya Marcus MD Signed Date: 12/01/2023 11:16 AM (CT) Dictated by: Chaitanya Marcus MD (CT) (CT) Page 2 of 2 Genie Inman APRN [address], [address], [facility] 02/15/2024 08:58:50 Xr, Shoulder : [facility] [address] [place] [address] Patient Name: DAVID HARLEY V Sex: M : 1940 Location: [facility] Attending Physician: DAVIDSON RUDOLPH Ordering Physician: DAVIDSON RUDOLPH Exam Date: 12/01/2023 9:51 AM Exam Name: XR SHOULDER RT Admitting Diagnosis(es): RADIOLOGY REPORT - FINAL EXAM: XR SHOULDER RT HISTORY: FALL/PAIN 83-year-old male with right shoulder pain after fall. COMPARISON: Radiographs dated 10/28/2018. TECHNIQUE: Four views of the right shoulder were performed. FINDINGS: No acute fracture or dislocation are identified about the right shoulder. There is acromioclavicular hypertrophy with near complete loss of subacromial space. There are postoperative changes of CABG, not fully imaged here. IMPRESSION: 1. No acute fracture of the right shoulder. Page 1 of 2 [facility] Patient Name: DAVID HARLEY V Sex: M : 1940 Exam Date: 12/01/2023 9:51 AM Exam Name: XR SHOULDER RT Admitting Diagnosis(es): 2. Acromioclavicular hypertrophy and loss of subacromial space suggestive of significant rotator cuff tendinopathy. Created and electronically signed by: Chaitanya Marcus MD Signed Date: 12/01/2023 11:18 AM (CT) Dictated by: Chaitanya Marcus MD (CT) (CT) Page 2 of 2 Genie Inman APRN [address] [facility], [facility] [address], [place], [address], [place] [facility] [place] [facility] 02/15/2024 08:58:50 Problems Name Problem SNOMED Code Status Onset Date Resolution Date Notes Provider Name and Address Organization Details Recorded Time Benign essential hypertensi on 2112788 Active Not Available [facility] 3 08:41:24 Hemoglobin below reference range 458415582 Active Not Available [facility] 3 08:41:24 Gastroesop hageal reflux disease 394249808 Active Not Available [facility] 3 08:41:24 Pure hyperchole sterolemia 055935020 Active Not Available [facility] 3 08:41:24 Systolic murmur 54267001 Active Not Available [facility] 3 08:41:24 Aortic valve stenosis 30152164 Active Not Available [facility] 3 08:41:24 Adult health examinatio n Active 2021 Not Available [facility] 3 08:41:24 Screening for disorder Active 2021 Not Available [facility] 3 08:41:24 Screening for malignant neoplasm of prostate Active 2021 Not Available [facility] 3 08:41:24 Hyperglyce jam 63553725 Active 2021 Not Available [facility] 3 08:41:24 Blood glucose outside reference range 498200190 Active 2021 Not Available [facility] 3 08:41:24 Benign prostatic hyperplasi a without outflow obstructio n 488925734 Active 2022 Not Available [facility] 3 08:41:24 Coronary atheroscle rosis 532133584 Active 2022 Not Available [facility] 3 08:41:24 Pain of right knee joint 5900871268980 00 Active 2022 Bee Bo RN null, [facility] 3 17:04:43 Pain of ear 161179869 Active 2022 Cathryn Palm null, [facility] 3 18:39:13 Pain of bilateral knee joints 3335979772371 04 Active 2022 Kelly López CMA null, [facility] 3 10:10:48 Arthritis of right knee joint 8467317290800 102 Active 2023 DWAYNE Juarez null, [facility] 4 09:53:48 Anterior knee pain 624023649 Active 2023 Kelly López CMA null, [facility] 4 10:48:53 Problem Notes None recorded. Procedures Surgical History Date Name Laterality Status Provider Name and Address Organization Details Recorded Time Hand completed Not Available [facility] 08/2022 06:11:09 release of trigger finger completed Not Available [facility] 09/30/2022 06:11:09 Cardiac Stent Placement completed Not Available [facility] 09/30/2022 06:11:09 heart valve replacement completed Not Available [facility] 09/30/2022 06:11:09 Imaging Results None recorded. Procedure Notes None recorded. Medical Equipment None Reported. Medications Name Sig Start Date Stop Date Status Note LastModified by Organization Details LastModified Time amoxicill in 500 mg capsule TAKE 1 CAPSULE BY MOUTH THREE TIMES DAILY 07/21 completed Not Available Not Available Not Available furosemid e 40 mg tablet TK 1 T PO D 05/30 completed Not Available Not Available Not Available prednison e 10 mg tablet take 3 tabs x 2 days, 2 tabs x 2 days 1 tab x 2 days active Not Available Not Available No t Available cefuroxim e axetil 250 mg tablet TK 1 T PO BID 08/25 completed Not Available Not Available Not Available enalapril maleate 10 mg tablet TK 1 T PO BID 05/30 completed Not Available Not Available Not Available atorvasta tin 10 mg tablet one tablet qd active Not Available Not Available No t Available azithromy alysia 250 mg tablet TAKE 2 TABLETS (500 MG) BY ORAL ROUTE ONCE DAILY FOR 1 DAY THEN 1 TABLET (250 MG) BY ORAL ROUTE ONCE DAILY FOR 4 DAYS 11/23 completed Not Available Not Available Not Available hydrocodo ne 5 mg-acetam inophen 325 mg tablet TK 1 T PO EVERY 4-6 HOURS NEEDED FOR PAIN 08/09 completed Not Available Not Available Not Available Doc-Q-Lac e 100 mg capsule TK ONE C PO BID 05/30 completed Not Available Not Available Not Available metronida zole 500 mg tablet TK 1 T PO Q 8 H 08/27 completed Not Available Not Available Not Available clopidogr el 75 mg tablet TK 1 T PO QD 08/16 completed pt stopped on his own Not Available Not Available Not Available sulfameth oxazole 800 mg-trimet hoprim 160 mg tablet TAKE 1 TABLET BY MOUTH TWICE DAILY 08/29 completed Not Available Not Available Not Available aspirin 81 mg tablet,de layed release TK 1 T PO D 06/12 completed Not Available Not Available Not Available tramadol 50 mg tablet TK 1 T PO Q 6 H PRN P 06/12 completed Not Available Not Available Not Available sildenafi l 100 mg tablet TK 1 T PO QD PRN 08/07 completed Not Available Not Available Not Available acyclovir 800 mg tablet TK 1 T PO BID 05/30 completed Not Available Not Available Not Available carvedilo l 3.125 mg tablet TK 1 T PO BID 05/30 completed Not Available Not Available Not Available ketorolac 10 mg tablet TK 1 T PO Q 8 H 08/27 completed Not Available Not Available Not Available potassium chloride ER 20 mEq tablet,ex tended release(p art/cryst ) TK 1 T PO D 05/30 completed Not Available Not Available Not Available tamsulosi n 0.4 mg capsule TAKE 1 CAPSULES BY MOUTH DAILY active Not Available Not Available No t Available Kenalog 10 mg/mL suspensio n for injection in office procedur e, administ ered by provider 2022 active [facility]: 0003-049 11-19 Not Available Not Available Not Available furosemid e 20 mg tablet TK 1 T PO QD 05/30 completed Not Available Not Available Not Available metoprolo l succinate ER 25 mg tablet,ex tended release 24 hr TK SS T PO BID 05/30 completed Not Available Not Available Not Available levofloxa alysia 500 mg tablet TK 1 T PO QD 05/20 completed Not Available Not Available Not Available Vitamin B-12 1,000 mcg tablet TK 1 T PO QD 06/12 completed Not Available Not Available Not Available Asprin Ec Low Dose 81 mg tablet,de layed release Take 1 tablet every day by oral route. 2019 active Not Available Not Available Not Avai lable Co Q-10 100 mg capsule Take by oral route. 03/08 completed Not Available Not Available Not Available vardenafi l 20 mg tablet TAKE 1 TABLET BY MOUTH 1 HOUR PRIOR TO ACTIVITY (NOT TO EXCEED MORE THAN 1 TABLET IN A 24 HOUR PERIOD) 02/05 completed Not Available Not Available Not Available tadalafil 5 mg tablet TAKE 1 TABLET BY MOUTH DAILY active Not Available Not Available No t Available Cialis 20 mg tablet Take one tablet by mouth as needed for erectile dysfunct ion. Maximum one tablet every 3 days. 08/25 completed Not Available Not Available Not Available metoprolo l tartrate 25 mg tablet TK 1/2 T PO BID active Not Available Not Available No t Available Co Q-10 06/12 completed Not Available Not Available Not Available flaxseed oil 05/30 completed Not Available Not Available Not Available metoprolo l succinate 08/07 completed Not Available Not Available Not Available lutein 03/22 completed Not Available Not Available Not Available B12 100mg 08/29 completed Not Available Not Available Not Available Suprep Bowel Prep Kit 17.5 gram-3.13 gram-1.6 gram oral solution MIX AND DRINK UTD 11/23 completed Not Available Not Available Not Available ropivacai ne (PF) 5 mg/mL (0.5 %) injection solution in office procedur e, administ ered by provider 2022 active [facility] 93986-38 10-31 Not Available Not Available Not Available lutein 40 mg capsule Take by oral route. 2021 active Not Available Not Available Not Avai lable Afluria Qd (36 mos up)(PF)60 mcg (15 mcg x4)/0.5 mL IM syringe TO BE ADMINIST ERED BY [employer] ST FOR IMMUNIZA TION 08/07 completed Not Available Not Available Not Available BinaxNOW COVID-19 Ag Self Test kit TEST DIRECTED TODAY 08/28 completed Not Available Not Available Not Available Vitals Date Recorded Body mass index (BMI) Body height Heart rate Body temperature Body weight Systolic And Diastolic Provider Name and Address Organization Details Last Updated DateTime 3 28 kg/m2 165.1 cm 72 /min 98.3 [degF] 19786.5 2 g 110/64 mm[Hg] Not Available [facility] 3 06:14:46 Date Recorded Body height Provider Name an d Address Organization Details Last Updated DateTime 09/02/2023 161.29 cm DWAYNE Juarez [place] [employer] 09/02/2023 09:52:23 Date Recorded Body height Body mass index (BMI) Body weight Body temperature Heart rate Oxygen saturation Systolic And Diastolic Provider Name and Address Organization Details Last Updated DateTime 3 165.1 cm 28 kg/m2 81798.5 2 g 97.2 [degF] 70 /min 96 % 148/60 mm[Hg] Shyann Pichardo MA [employer] 3 10:22:42 Date Recorded Body mass index (BMI) Body height Body weight Provider Name and Address Organization Details Last Updated DateTime 07/08/2022 28.3 kg/m2 165.1 cm 42013.7 g Not Available [facility] 09/30/2022 06:14:50 Date Recorded Body height Body mass index (BMI) Body weight Provider Name and Address Organization Details Last Updated DateTime 07/21/2023 161.29 cm 28.8 kg/m2 48663.74 g JanessaDWAYNE Ruffin [place] [facility] 07/21/2023 09:29:37 Social History Question Answer Notes LastModified by Organizat ion Details LastModified Time Tobacco Smoking Status Never Smoker Not Available [facility] 09/30/2022 06:10:37 Do You Have An Advance Directive? Yes MIGRATION.90036 83692 Information not available 09/30/2022 Do You Wear A Helmet When Biking? Yes Yes MIGRATION.19077 57985 Information not available 09/30/2022 Are You Blind Or Do You Have Difficulty Seeing? No MIGRATION.48598 25423 Information not available 09/30/2022 What Is Your Level Of Caffeine Consumption? Moderate MIGRATION.49186 45669 Information not available 09/30/2022 In The 14 Days Before Symptom Onset, Have You Had Close Contact With A Laboratory-confi rmed COVID-19 While That Case Was Ill? No MIGRATION.24852 65226 Information not available 09/30/2022 In The 14 Days Before Symptom Onset, Have You Had Close Contact With A Person Who Is Under Investigation For COVID-19 While That Person Was Ill? No MIGRATION.66760 70999 Information not available 09/30/2022 Are You Deaf Or Do You Have Serious Difficulty Hearing? No MIGRATION.02844 41578 Information not available 09/30/2022 What Type Of Diet Are You Following? REGULAR MIGRATION.45305 09854 Information not available 09/30/2022 What Is The Highest Grade Or Level Of School You Have Completed Or The Highest Degree You Have Received? [id number] MIGRATION.24745 16968 Information not available 09/30/2022 How Many Days Of Moderate To Strenuous Exercise, Like A Brisk Walk, Did You Do In The Last 7 Days? 7 MIGRATION.65467 52906 Information not available 09/30/2022 Have There Been Any Changes To Your Family Or Social Situation? No MIGRATION.96013 94213 Information not available 09/30/2022 What Is The Fluoride Status Of Your Home? Unknown MIGRATION.62875 19635 Information not available 09/30/2022 Are There Any Guns Present In Your Home? Yes MIGRATION.94098 61221 Information not available 09/30/2022 Do You Use Insect Repellent Routinely? Yes MIGRATION.73788 46448 Information not available 09/30/2022 Where Do You Live? [place]House MIGRATION.08665 98325 Information not available 09/30/2022 Do You Have A Medical Power Of Repair Order Clerk? Yes MIGRATION.91433 42707 Information not available 09/30/2022 What Was The Date Of Your Most Recent Tobacco Screening? 08/28/2022 MIGRATION.88853 67941 Information not available 09/30/2022 Have You Ever Been Counseled For Unhealthy Alcohol Use? No MIGRATION.67672 59329 Information not available 09/30/2022 Do You Have Any Pets? No MIGRATION.91816 06742 Information not available 09/30/2022 What Is Your Relationship Status? Domestic Partner MIGRATION.26089 64534 Information not available 09/30/2022 Do You Use Your Seat Belt Or Car Seat Routinely? Yes MIGRATION.15568 14205 Information not available 09/30/2022 Do You Have Smoke And Carbon Monoxide Detectors In Your Home? Yes MIGRATION.85591 90552 Information not available 09/30/2022 Are You Passively Exposed To Smoke? No MIGRATION.94793 42412 Information not available 09/30/2022 Are There Any Smokers In Your House? No MIGRATION.47764 71287 Information not available 09/30/2022 What Types Of Sporting Activities Do You Participate In? Bike Riding MIGRATION.95209 38519 Information not available 09/30/2022 Do You Use Sunscreen Routinely? Yes MIGRATION.92152 60148 Information not available 09/30/2022 Has Tobacco Cessation Counseling Been Provided? No Not Needed-ne kiana Smoked MIGRATION.58624 67209 Information not available 09/30/2022 Have You Recently Traveled Abroad? No MIGRATION.11182 03467 Information not available 09/30/2022 Do You Have Difficulty Walking Or Climbing Stairs? No MIGRATION.15934 69900 Information not available 09/30/2022 Do You Have Any Dietary Restrictions? No MIGRATION.30898 29221 Information not available 09/30/2022 Sex: Male Functional Status Question Answer Note LastModified by Organizat ion Details LastModified Time Do you use any illicit or recreational drugs? No MIGRATION.7986399 026 Information not available 09/30/2022 Do you or have you ever used any other forms of tobacco or nicotine? No MIGRATION.2872609 026 Information not available 09/30/2022 What is your level of alcohol consumption? Occasional MIGRATION.7175077 026 Information not available 09/30/2022 Do you have transportation difficulties? No MIGRATION.0923610 026 Information not available 09/30/2022 Are you able to walk independently without assistance or assistive devices? YESASSIST MIGRATION.5456417 026 Information not available 09/30/2022 Do you have difficulty doing errands alone? No MIGRATION.9554722 026 Information not available 09/30/2022 Are you able to care for yourself independently? Yes MIGRATION.1569683 026 Information not available 09/30/2022 Do you have difficulty dressing, bathing, grooming, or toileting? No MIGRATION.5529489 026 Information not available 09/30/2022 What is your exercise level? Moderate MIGRATION.6946984 026 Information not available 09/30/2022 Mental Status Question Answer Note LastModified by Organizat ion Details LastModified Time Do you feel stressed (tense, restless, nervous, or anxious, or unable to sleep at night)? [id number] MIGRATION.64446080 26 Information not available 09/30/2022 Do you have difficulty concentrating, remembering or making decisions? No MIGRATION.04548875 26 Information not available 09/30/2022 Family History Relationship Description Onset Age of this Age Resolved Age Notes LastModified by Organization Details LastModified Time Brother Heart disease MIGRATION.676 [id number] Not available 09/30/2022 06:11:12 Unspecified Relation Family history of malignant neoplasm MIGRATION.023 [id number] Not available 09/30/2022 06:11:12 Medical History Condition Response BLINDNESS N NERVE DISEASE N RHEUMATIC FEVER N BLADDER PROBLEMS N KIDNEY STONES N MRSA N OTHER # 1 N POLIO N LUNG DISEASE/DISORDER N HISTORY OF DRUG ABUSE N RADIATION / CHEMOTHERAPY N COPD N Other # 2 N BLOOD DISEASES N EAR OR HEARING PROBLEMS N MUMPS N SHINGLES N BOWEL PROBLEMS N DEPRESSION (INCLUDING POST ) N STROKE/TIA N ULCERS N BENIGN PROSTATIC HYPERPLASIA N MEASLES N HYPOTENSION N MYOCARDIAL INFARCTION N OBESITY N GERD/NAUSEA N ANEURYSM N URINARY/BLADDER/KIDNEY PROBLEMS N CORONARY ARTERY DISEASE (CAD) N ADDICTION CONCERNS N Impotence N ENDOMETRIOSIS N USE OF BLOOD THINNERS N SKIN PROBLEMS N GASTROINTESTINAL DISORDER N PERIPHERAL VASCULAR DISEASE N MUSCLE,JOINT OR BONE PROBLEMS N GASTROINTESTINAL BLEEDING N BLOOD CLOTS N ASTHMA N CATARACTS N ERECTILE DYSFUNCTION N VARICOSITIES N GI PROBLEMS N Low Testosterone N INFERTILITY N AIDS/HIV N CHEMOTHERAPY / RADIATION N LIVER DISEASE N MALE HYPOGONADISM N HYPERTENSION Y Deficiency N TOURETTE'S N ANXIETY DISORDER N BLOOD TRANSFUSION N ANEMIA/BLOOD DISORDER N CHRONIC EAR INFECTIONS N BRONCHITIS N TUBERCULOSIS N GLAUCOMA N FOOT PROBLEM N DIVERTICULITIS N SLEEP APNEA N CHICKENPOX N INFECTIOUS DISEASE N PROSTATE N HEART ARRHYTHMIA N INSOMNIA N HIGH CHOLESTEROL / HYPERLIPIDEMIA Y EYE PROBLEMS N HYPERTHYROIDISM N EDEMA N CHRONIC PAIN SYNDROME N HYPOTHYROIDISM N CAROTID BLOCKAGE N CONSTIPATION N BACK / NECK PROBLEMS N HAVE YOU BEEN HOSPITALIZED OR SEEN IN [facility] IN THE PAST YEAR ? N ATHEROSCLEROSIS N BREAST PROBLEMS N DIALYSIS N ECZEMA N OSTEOPOROSIS N ARTHRITIS N APPENDICITIS N DIABETES, TYPE N BAD TEETH N ENT N HEARTBURN / REFLUX N AUTISM SPECTRUM DISORDER (ASD) N HEPATITIS / LIVER DISEASE N GOUT N SLEEP DISORDER N ALZHEIMER'S DISEASE N Brain Problems N DEMENTIA N HERPES N SEIZURES/EPILEPSY N HEADACHES/MIGRAINES N VASCULAR DISEASE N PACEMAKER N Blood Disorder N DIZZINESS N HEART DISEASE/HEART PROBLEMS N KIDNEY DISEASE N MULTIPLE SCLEROSIS N CANCER: SPECIFY Y CARDIAC ARRHYTHMIA N ATRIAL FIBRILLATION N Gall Stones N PULMONARY EMBOLISM N AUTOIMMUNE DISEASE N Immunizations Vaccine Type Date Status Note Provider Nam e and Address Organization Details Recorded Time COVID-19, mRNA, LNP-S, PF, 100 mcg/0.5mL dose or 50 mcg/0.25mL dose 10/01/2020 completed Not Available [facility] 3 08:41:24 COVID-19, mRNA, LNP-S, PF, 100 mcg/0.5mL dose or 50 mcg/0.25mL dose 09/03/2020 completed Not Available [facility] 3 08:41:24 Influenza, high-dose, quadrivalent, PF 04/02/2020 completed Not Available [facility] 3 08:41:24 Past Encounters Encounter ID Performer Location Encounter Start Date Encounter Closed Date Diagnosis/Indication Diagnosis SNOMED-CT Code Diagnosis ICD10 Code Diagnosis IMO Codes Diagnosis Note [id number] Davidson Rudolph MD [facility] [place] [address] [facility] [address] [place] [address] 02/24/2021 00:00:00 03/01/2021 17:47:23 [id number] Hayder Gotti MD [facility] [address] [facility], [facility] [address] [place] [address] 03/05/2021 00:00:00 03/05/2021 18:21:09 [id number] Hayder Gotti MD [facility] [address] [place] [address] 03/25/2021 00:00:00 03/25/2021 15:33:23 [id number] Hayder Gotti MD [facility] [address] [facility] [address] [place] [address] 05/27/2021 00:00:00 05/27/2021 16:28:01 [id number] Davidson Rudolph MD [facility] [place] [address] [facility] [address] [place] [address] 08/29/2021 00:00:00 08/29/2021 21:40:18 [id number] Hayder Gotti MD [facility] [address] [facility] [address] [place] [address] 09/23/2021 00:00:00 09/23/2021 15:09:07 [id number] Davidson Rudolph MD [facility] [place] [address] [facility], [facility] [address] [place] [address] 02/27/2022 00:00:00 02/27/2022 16:34:47 [id number] Hayder Gotti MD [facility] [address] [facility] [place] [address] 07/08/2022 00:00:00 07/08/2022 17:13:35 [id number] Davidson Rudolph MD [facility] [place] [address] [facility] [address] [place] [address] 08/28/2022 00:00:00 08/28/2022 11:18:41 [id number] Davidson Rudolph MD [facility] [place] [address] [facility] [place] [address] [place] [address] 03/08/2023 10:12:14 03/08/2023 10:44:19 Benign essential hypertension 7922238 I10 Benign pro static hyperplasia without outflow obstruction 095240535 N40.0 Gastroesop hageal reflux disease 312303356 K21.9 Pure hypercholesterolemia 287020182 E78.00 [id number] Francisco Javier Santoro MD [facility] [address] [place] [address] 07/21/2023 08:53:52 07/21/2023 14:13:47 Pain of right knee joint 2732964592 08717 M25.744 [id number] Francisco Javier Santoro MD [facility] [address] [facility], [address] [place] [address] 09/02/2023 09:48:57 09/02/2023 10:56:10 Arthritis of right knee joint 1514183146 373072 M13.861 Health Concerns Section Related Observation LastModified by Organization Detai ls LastModified Time None Recorded Concern Status LastModified by Organization Details LastModified Time None Recorded Advance Directives Directive Y: Payers Insurance Date Sequence Insurance Name Policy Number Policy Collins Covered Member ID Collins Member ID Guarantor Name 09/13/2023 1 [facility] (MEDICARE REPLACEMENT/A DVANTAGE - PPO) [id number] David Harley [id number] David Harley Notes Date Note Type Note Provider Name and Address Organization Details Recorded Time 03/08/2023 text/html CAD no chest pain aortic valve stenosis repair doing fine GERD no nausea vomiting dyslipidemia try to follow a low-fat diet Davidson Rudolph MD [address] [facility], [facility] [address], [place], [address], [facility] 03/08/2023 11:15:03 07/21/2023 text/html Patient is an 83-year-old gentleman referred by Dr. Rudolph for evaluation of his right knee. He had no prior problems with his right knee until May of this year. In April he harvested the cons which involves a lot of bending forward and a little bit of stooping. He developed severe pain in the right knee. He took occasional ibuprofen but does not like taking pills. He could not kneel on it for a month. He went to physical therapy for 11 visits in June and he feels that the therapy just made his knee hurt more. His past medical history is significant for heart valve replacement in March 2014. He did have what appears to be a vein harvest from the medial aspect of his knee has a 1 in transverse incision Medial right knee. Patient is very active. He is planning a trip to [facility] later in the spring for hiking. Francisco Javier Santoro MD [address], [facility] [address], [place], [id number], [employer] 07/21/2023 13:06:30 09/02/2023 text/html Patient returns. We saw him 6 weeks ago. He was noted to have moderately severe patellofemoral arthritis the right knee. He had a prominent effusion. He had a cortisone shot that time and it made his knee feel like a new knee. After 2 weeks all the fluid had disappeared. Then about 2 weeks ago he started getting the fluid back. He still has very little discomfort. Yesterday he walked up and down several steep hills on a 3/4 mi walk to look at a fallen tree. He complains that when he is squatting down feels like his knee will give out and the same happens when he is trying to get up off the ground. Occasionally will feel an ice pick like pain in his lower back last for a moment. Francisco Javier Santoro MD [address], [address], [place], [address], [employer] 09/02/2023 10:47:12
--- OUTSIDE RECORDS SUMMARY | 2025-06-22 09:38 | XMS_ITS | Data Portability ---
Author Organization [facility] Address [address] [place] [address] Care Team Providers Care Knowledge Management Advisor Name Role Phone DAVIDSON RUDOLPH Primary Care Provider Unavailabl e Assessment Encounter Date Assessment Date Assessment LastModified by Organization Details LastModified Time 03/28/2024 03/28/2024 blood work continue current therapy see me back in 4 months Not available 03/28/2024 22:27:36 08/08/2024 08/08/2024 recheck blood pressure 1 week and bring his machine in healthy lifestyle care instructions CBC CMP and lipid has been ordered regular follow up in 4 months [email or web address] Not available 08/21/2024 17:44:41 02/06/2025 02/06/2025 Continue current therapy blood work has been ordered diagnosis in the assessment and plan has been discussed follow up in 6 months [email or web address] Not available 03/04/2025 21:36:58 Plan of Treatment Reminders Order Date Submit Date Provider Last Modified By Organization Details Last Modified Time Details Appointments ANY 15 2025 09:15A Kurt Rudolph MD Not available Not available Not available Lab PSA, total, serum or plasma 2024 025 [facility], [address], [place], [address], 02/07/2025 13:12:59 lipid panel, serum 2024 025 [facility], [address], [place], [address], 02/07/2025 13:12:55 CMP, serum or plasma 2024 025 [facility], [address], [place], [address], 02/07/2025 13:12:56 CBC w/ auto diff 2024 025 [facility], [address], [place], [address], 02/07/2025 13:12:58 lipid panel, serum 2024 025 [facility], [address], [place], [address], 08/10/2024 06:22:23 CMP, serum or plasma 2024 025 [facility], [address], [place], [address], 08/10/2024 06:22:24 CBC w/ auto diff 2024 025 [facility], [address], [place], [address], 08/10/2024 06:22:26 lipid panel, serum 2023 024 [facility], [address], [place], [address], 03/29/2024 06:20:00 CMP, serum or plasma 2023 024 [facility], [address], [place], [address], 03/29/2024 06:20:01 CBC w/ auto diff 2023 024 [facility], [address], [place], [address], 03/29/2024 06:20:01 Referral None recorded . Procedures None recorded . Surgeries None recorded . Imaging None recorded . Medication Orders None recorded . Patient TargetsNo targets recorded. Patient Instructions Encounter Date Encounter Id Patient Instructions Last Modified By Organization Details Last Modified Time 08/08/2024 [id number] A healthy lifestyle: care instructions [email or web address] Not available 08/08/2024 12:46:08 02/06/2025 [id number] A healthy lifestyle: care instructions [email or web address] Not available 02/06/2025 12:32:56 Reason for Referral None Reported. Results Created Date Observation Date Name Description Value Unit Range Abnormal Flag Note LastModifiedBy Organization Detail LastModifiedTime 03/28/20 24 03/29/2024 LIPID PANEL cholesterol, total 140 mg/dL 100-19 9 Not Available [facility] ([facility]) [address] [place], [address], 03/29/2024 06:20:00 03/28/20 24 03/29/2024 LIPID PANEL triglyceride s 62 mg/dL 0-149 Not Available [facility] ([facility]) [address] [place], [address], 03/29/2024 06:20:00 03/28/20 24 03/29/2024 LIPID PANEL HDL cholesterol 55 mg/dL >39 Not Available [facility] ([facility]) [address] [place], [address], 03/29/2024 06:20:00 03/28/20 24 03/29/2024 LIPID PANEL VLDL cholesterol miles 13 mg/dL 5-40 Not Available [facility] ([facility]) [address] [place], [address], 03/29/2024 06:20:00 03/28/20 24 03/29/2024 LIPID PANEL LDL chol calc ([facility]) 72 mg/dL 0-99 Not Available [facility] ([facility]) [address] [place], [address], 03/29/2024 06:20:00 03/28/20 24 03/29/2024 COMP. METAB OLIC PANEL (14) glucose 90 mg/dL 70-99 Not Available [facility] ([facility]) [address] [place], [address], 03/29/2024 06:20:01 03/28/20 24 03/29/2024 COMP. METAB OLIC PANEL (14) BUN 29 mg/dL 8-27 above high normal Not Available [facility] ([facility]) [address] [facility] [place], [address], 03/29/2024 06:20:01 03/28/20 24 03/29/2024 COMP. METAB OLIC PANEL (14) creatinine 0.86 mg/dL 0.76-1 .27 Not Available [facility] ([facility]) [address] [facility] [place], [address], 03/29/2024 06:20:01 03/28/20 24 03/29/2024 COMP. METAB OLIC PANEL (14) eGFR 86 mL/mi n/1.7 3 >59 Not Available [facility] ([facility]) [address] [facility], [place], [address], 03/29/2024 06:20:01 03/28/20 24 03/29/2024 COMP. METAB OLIC PANEL (14) BUN/creatini ne ratio 34 10-24 above high normal Not Available [facility] ([facility]) [address] [facility] [place], [address], 03/29/2024 06:20:01 03/28/20 24 03/29/2024 COMP. METAB OLIC PANEL (14) sodium 142 mmol/ L 134-14 4 Not Available [facility] ([facility]) [address] [facility] [place], [address], 03/29/2024 06:20:01 03/28/20 24 03/29/2024 COMP. METAB OLIC PANEL (14) potassium 5.5 mmol/ L 3.5-5. 2 above high normal Not Available [facility] ([facility]) [address] [facility] [place], [address], 03/29/2024 06:20:01 03/28/20 24 03/29/2024 COMP. METAB OLIC PANEL (14) chloride 104 mmol/ L 96-106 Not Available [facility] ([facility]) [address] [place], [address], 03/29/2024 06:20:01 03/28/20 24 03/29/2024 COMP. METAB OLIC PANEL (14) carbon dioxide, total 28 mmol/ L 20-29 Not Available [facility] ([facility]) [address] [place], [address], 03/29/2024 06:20:01 03/28/20 24 03/29/2024 COMP. METAB OLIC PANEL (14) calcium 9.5 mg/dL 8.6-10 .2 Not Available [facility] ([facility]) [address] [facility], [place], [address], 03/29/2024 06:20:01 03/28/20 24 03/29/2024 COMP. METAB OLIC PANEL (14) protein, total 6.6 g/dL 6.0-8. 5 Not Available [facility] ([facility]) [address] [facility] [place], [address], 03/29/2024 06:20:01 03/28/20 24 03/29/2024 COMP. METAB OLIC PANEL (14) albumin 4.3 g/dL 3.7-4. 7 Not Available [facility] ([facility]) [address] [facility] [place], [address], 03/29/2024 06:20:01 03/28/20 24 03/29/2024 COMP. METAB OLIC PANEL (14) globulin, total 2.3 g/dL 1.5-4. 5 Not Available [facility] ([facility]) [address] [facility] [place], [address], 03/29/2024 06:20:01 03/28/20 24 03/29/2024 COMP. METAB OLIC PANEL (14) bilirubin, total 0.4 mg/dL 0.0-1. 2 Not Available [facility] ([facility]) [address] [facility], [place], [address], 03/29/2024 06:20:01 03/28/20 24 03/29/2024 COMP. METAB OLIC PANEL (14) alkaline phosphatase 70 IU/L 44-121 Not Available [facility] ([facility]) [address] [facility], [place], [address], 03/29/2024 06:20:01 03/28/20 24 03/29/2024 COMP. METAB OLIC PANEL (14) AST (SGOT) 20 IU/L 0-40 Not Available [facility] ([facility]) [address] [facility], [place], [address], 03/29/2024 06:20:01 03/28/20 24 03/29/2024 COMP. METAB OLIC PANEL (14) ALT (SGPT) 10 IU/L 0-44 Not Available [facility] ([facility]) [address] [facility], [place], [address], 03/29/2024 06:20:01 03/28/20 24 03/28/2024 CBC WITH DIFFE RENTI AL/PL ATELE T WBC 6.8 x10e3 /uL 3.4-10 .8 Not Available [facility] ([facility]) [address] [facility], [place], [address], 03/29/2024 06:20:01 03/28/20 24 03/28/2024 CBC WITH DIFFE RENTI AL/PL ATELE T RBC 4.12 x10e6 /uL 4.14-5 .80 below low normal Not Available [facility] ([facility]) [address] [facility], [place], [address], 03/29/2024 06:20:01 03/28/20 24 03/28/2024 CBC WITH DIFFE RENTI AL/PL ATELE T hemoglobin 12.7 g/dL 13.0-1 7.7 below low normal Not Available [facility] ([facility]) [address] [facility], [place], [address], 03/29/2024 06:20:01 03/28/20 24 03/28/2024 CBC WITH DIFFE RENTI AL/PL ATELE T hematocrit 39.9 % 37.5-5 1.0 Not Available [facility] ([facility]) [address] [facility], [place], [address], 03/29/2024 06:20:01 03/28/2003/28/2024 CBC WITH DIFFE RENTI AL/PL ATELE T MCV 97 fL 79-97 Not Available [facility] ([facility]) [address] [facility], [place], [address], 03/29/2024 06:20:01 03/28/2003/28/2024 CBC WITH DIFFE RENTI AL/PL ATELE T MCH 30.8 pg 26.6-3 3.0 Not Available [facility] ([facility]) [address] [facility], [place], [address], 03/29/2024 06:20:01 03/28/2003/28/2024 CBC WITH DIFFE RENTI AL/PL ATELE T MCHC 31.8 g/dL 31.5-3 5.7 Not Available [facility] ([facility]) [address] [facility], [place], [address], 03/29/2024 06:20:01 03/28/2003/28/2024 CBC WITH DIFFE RENTI AL/PL ATELE T RDW 12.2 % 11.6-1 5.4 Not Available [facility] ([facility]) [address] [place], [address], 03/29/2024 06:20:01 03/28/2003/28/2024 CBC WITH DIFFE RENTI AL/PL ATELE T platelets 183 x10e3 /uL 150-45 0 Not Available [facility] ([facility]) [address] [facility], [place], [address], 03/29/2024 06:20:01 03/28/20 24 03/28/2024 CBC WITH DIFFE RENTI AL/PL ATELE T neutrophils 51 % notest ab. Not Available [facility] ([facility]) [address] [facility], [place], [address], 03/29/2024 06:20:01 03/28/20 24 03/28/2024 CBC WITH DIFFE RENTI AL/PL ATELE T lymphs 39 % notest ab. Not Available [facility] ([facility]) [address] [facility], [place], [address], 03/29/2024 06:20:01 03/28/20 24 03/28/2024 CBC WITH DIFFE RENTI AL/PL ATELE T monocytes 8 % notest ab. Not Available [facility] ([facility]) [address] [facility], [place], [address], 03/29/2024 06:20:01 03/28/20 24 03/28/2024 CBC WITH DIFFE RENTI AL/PL ATELE T eos 2 % notest ab. Not Available [facility] ([facility]) [address] [facility], [place], [address], 03/29/2024 06:20:01 03/28/20 24 03/28/2024 CBC WITH DIFFE RENTI AL/PL ATELE T basos 0 % notest ab. Not Available [facility] ([facility]) [address] [facility], [place], [address], 03/29/2024 06:20:01 03/28/20 24 03/28/2024 CBC WITH DIFFE RENTI AL/PL ATELE T neutrophils (absolute) 3.4 x10e3 /uL 1.4-7. 0 Not Available [facility] ([facility]) [address] [facility], [place], [address], 03/29/2024 06:20:01 03/28/20 24 03/28/2024 CBC WITH DIFFE RENTI AL/PL ATELE T lymphs (absolute) 2.7 x10e3 /uL 0.7-3. 1 Not Available [facility] ([facility]) [address] [facility], [place], [address], 03/29/2024 06:20:01 03/28/20 24 03/28/2024 CBC WITH DIFFE RENTI AL/PL ATELE T monocytes(ab solute) 0.6 x10e3 /uL 0.1-0. 9 Not Available [facility] ([facility]) [address] [facility], [place], [address], 03/29/2024 06:20:01 03/28/20 24 03/28/2024 CBC WITH DIFFE RENTI AL/PL ATELE T eos (absolute) 0.1 x10e3 /uL 0.0-0. 4 Not Available [facility] ([facility]) [address] [facility], [place], [address], 03/29/2024 06:20:01 03/28/20 24 03/28/2024 CBC WITH DIFFE RENTI AL/PL ATELE T baso (absolute) 0.0 x10e3 /uL 0.0-0. 2 Not Available [facility] ([facility]) [address] [facility], [place], [address], 03/29/2024 06:20:01 03/28/20 24 03/28/2024 CBC WITH DIFFE RENTI AL/PL ATELE T immature granulocytes 0 % notest ab. Not Available [facility] ([facility]) [address] [facility], [place], [address], 03/29/2024 06:20:01 08/27/03/28/2024 CBC WITH DIFFE RENTI AL/PL ATELE T immature grans (abs) 0.0 x10e3 /uL 0.0-0. 1 Not Available [facility] ([facility]) [address] [place], [address], 03/29/2024 06:20:01 04/12/20 24 04/12/2024 Potas sium [Mole s/vol ume] in Serum or Plasm a potassium potas sium Not Available Not Available 09/13/2024 03:28:24 08/08/19 25 08/10/2024 LIPID PANEL cholesterol, total 140 mg/dL 100-19 9 Not Available [facility] ([facility]) [address] [place], [address], 08/10/2024 06:22:23 08/08/19 25 08/10/2024 LIPID PANEL triglyceride s 108 mg/dL 0-149 Not Available [facility] ([facility]) [address] [place], [address], 08/10/2024 06:22:23 08/08/19 25 08/10/2024 LIPID PANEL HDL cholesterol 50 mg/dL >39 Not Available [facility] ([facility]) [address] [place], [address], 08/10/2024 06:22:23 08/08/19 25 08/10/2024 LIPID PANEL VLDL cholesterol miles 20 mg/dL 5-40 Not Available [facility] ([facility]) [address] [place], [address], 08/10/2024 06:22:23 08/08/19 25 08/10/2024 LIPID PANEL LDL chol calc ([facility]) 70 mg/dL 0-99 Not Available [facility] ([facility]) [address] [place], [address], 08/10/2024 06:22:23 08/08/19 25 08/10/2024 COMP. METAB OLIC PANEL (14) glucose 97 mg/dL 70-99 Not Available [facility] ([facility]) [address] [place], [address], 08/10/2024 06:22:24 08/08/19 25 08/10/2024 COMP. METAB OLIC PANEL (14) BUN 22 mg/dL 8-27 Not Available [facility] ([facility]) [address] [place], [address], 08/10/2024 06:22:24 08/08/19 25 08/10/2024 COMP. METAB OLIC PANEL (14) creatinine 0.84 mg/dL 0.76-1 .27 Not Available [facility] ([facility]) [address] [place], [address], 08/10/2024 06:22:24 08/08/19 25 08/10/2024 COMP. METAB OLIC PANEL (14) eGFR 87 mL/mi n/1.7 3 >59 Not Available [facility] ([facility]) [address] [place], [address], 08/10/2024 06:22:24 08/08/19 25 08/10/2024 COMP. METAB OLIC PANEL (14) BUN/creatini ne ratio 26 10-24 above high normal Not Available [facility] ([facility]) [address] [place], [address], 08/10/2024 06:22:24 08/08/19 25 08/10/2024 COMP. METAB OLIC PANEL (14) sodium 143 mmol/ L 134-14 4 Not Available [facility] ([facility]) [address] [place], [address], 08/10/2024 06:22:24 08/08/19 25 08/10/2024 COMP. METAB OLIC PANEL (14) potassium 5.2 mmol/ L 3.5-5. 2 Not Available [facility] ([facility]) [address] [place], [address], 08/10/2024 06:22:24 08/08/19 25 08/10/2024 COMP. METAB OLIC PANEL (14) chloride 104 mmol/ L 96-106 Not Available [facility] ([facility]) [address] [place], [address], 08/10/2024 06:22:24 08/08/19 25 08/10/2024 COMP. METAB OLIC PANEL (14) carbon dioxide, total 27 mmol/ L 20-29 Not Available [facility] ([facility]) [address] [place], [address], 08/10/2024 06:22:24 08/08/19 25 08/10/2024 COMP. METAB OLIC PANEL (14) calcium 9.4 mg/dL 8.6-10 .2 Not Available [facility] ([facility]) [address] [place], [address], 08/10/2024 06:22:24 08/08/19 25 08/10/2024 COMP. METAB OLIC PANEL (14) protein, total 6.3 g/dL 6.0-8. 5 Not Available [facility] ([facility]) [address] [place], [address], 08/10/2024 06:22:24 08/08/19 25 08/10/2024 COMP. METAB OLIC PANEL (14) albumin 4.3 g/dL 3.7-4. 7 Not Available [facility] ([facility]) [address] [place], [address], 08/10/2024 06:22:24 08/08/19 25 08/10/2024 COMP. METAB OLIC PANEL (14) globulin, total 2.0 g/dL 1.5-4. 5 Not Available [facility] ([facility]) [address] [place], [address], 08/10/2024 06:22:24 08/08/19 25 08/10/2024 COMP. METAB OLIC PANEL (14) bilirubin, total 0.3 mg/dL 0.0-1. 2 Not Available [facility] ([facility]) [address] [facility], [place], [address], 08/10/2024 06:22:24 08/08/19 25 08/10/2024 COMP. METAB OLIC PANEL (14) alkaline phosphatase 70 IU/L 44-121 Not Available [facility] ([facility]) [address] [facility] [place], [address], 08/10/2024 06:22:24 08/08/19 25 08/10/2024 COMP. METAB OLIC PANEL (14) AST (SGOT) 19 IU/L 0-40 Not Available [facility] ([facility]) [address] [facility] [place], [address], 08/10/2024 06:22:24 08/08/19 25 08/10/2024 COMP. METAB OLIC PANEL (14) ALT (SGPT) 9 IU/L 0-44 Not Available [facility] ([facility]) [address] [facility], [place], [address], 08/10/2024 06:22:24 08/08/19 25 08/09/2024 CBC WITH DIFFE RENTI AL/PL ATELE T WBC 7.6 x10e3 /uL 3.4-10 .8 Not Available [facility] ([facility]) [address] [facility] [place], [address], 08/10/2024 06:22:25 08/08/19 25 08/09/2024 CBC WITH DIFFE RENTI AL/PL ATELE T RBC 4.07 x10e6 /uL 4.14-5 .80 below low normal Not Available [facility] ([facility]) [address] [facility] [place], [address], 08/10/2024 06:22:25 08/08/19 25 08/09/2024 CBC WITH DIFFE RENTI AL/PL ATELE T hemoglobin 12.2 g/dL 13.0-1 7.7 below low normal Not Available [facility] ([facility]) [address] [place], [address], 08/10/2024 06:22:25 08/08/1908/09/2024 CBC WITH DIFFE RENTI AL/PL ATELE T hematocrit 37.4 % 37.5-5 1.0 below low normal Not Available [facility] ([facility]) [address] [place], [address], 08/10/2024 06:22:25 08/08/1908/09/2024 CBC WITH DIFFE RENTI AL/PL ATELE T MCV 92 fL 79-97 Not Available [facility] ([facility]) [address] [place], [address], 08/10/2024 06:22:25 08/08/19 25 08/09/2024 CBC WITH DIFFE RENTI AL/PL ATELE T MCH 30.0 pg 26.6-3 3.0 Not Available [facility] ([facility]) [address] [place], [address], 08/10/2024 06:22:25 08/08/1908/09/2024 CBC WITH DIFFE RENTI AL/PL ATELE T MCHC 32.6 g/dL 31.5-3 5.7 Not Available [facility] ([facility]) [address] [place], [address], 08/10/2024 06:22:25 08/08/19 25 08/09/2024 CBC WITH DIFFE RENTI AL/PL ATELE T RDW 12.0 % 11.6-1 5.4 Not Available [facility] ([facility]) [address] [place], [address], 08/10/2024 06:22:25 08/08/19 25 08/09/2024 CBC WITH DIFFE RENTI AL/PL ATELE T platelets 164 x10e3 /uL 150-45 0 Not Available [facility] ([facility]) [address] [facility] [place], [address], 08/10/2024 06:22:25 08/08/19 25 08/09/2024 CBC WITH DIFFE RENTI AL/PL ATELE T neutrophils 53 % notest ab. Not Available [facility] ([facility]) [address] [facility] [place], [address], 08/10/2024 06:22:25 08/08/19 25 08/09/2024 CBC WITH DIFFE RENTI AL/PL ATELE T lymphs 32 % notest ab. Not Available [facility] ([facility]) [address] [facility] [place], [address], 08/10/2024 06:22:25 08/08/19 25 08/09/2024 CBC WITH DIFFE RENTI AL/PL ATELE T monocytes 9 % notest ab. Not Available [facility] ([facility]) [address] [facility] [place], [address], 08/10/2024 06:22:25 08/08/19 25 08/09/2024 CBC WITH DIFFE RENTI AL/PL ATELE T eos 4 % notest ab. Not Available [facility] ([facility]) [address] [facility] [place], [address], 08/10/2024 06:22:25 08/08/19 25 08/09/2024 CBC WITH DIFFE RENTI AL/PL ATELE T basos 1 % notest ab. Not Available [facility] ([facility]) [address] [facility] [place], [address], 08/10/2024 06:22:25 08/08/19 25 08/09/2024 CBC WITH DIFFE RENTI AL/PL ATELE T neutrophils (absolute) 4.1 x10e3 /uL 1.4-7. 0 Not Available [facility] ([facility]) [address] [facility] [place], [address], 08/10/2024 06:22:25 08/08/19 25 08/09/2024 CBC WITH DIFFE RENTI AL/PL ATELE T lymphs (absolute) 2.4 x10e3 /uL 0.7-3. 1 Not Available [facility] ([facility]) [address] [facility], [place], [address], 08/10/2024 06:22:25 08/08/1908/09/2024 CBC WITH DIFFE RENTI AL/PL ATELE T monocytes(ab solute) 0.7 x10e3 /uL 0.1-0. 9 Not Available [facility] ([facility]) [address] [place], [address], 08/10/2024 06:22:25 08/08/19 25 08/09/2024 CBC WITH DIFFE RENTI AL/PL ATELE T eos (absolute) 0.3 x10e3 /uL 0.0-0. 4 Not Available [facility] ([facility]) [address] [place], [address], 08/10/2024 06:22:25 08/08/19 25 08/09/2024 CBC WITH DIFFE RENTI AL/PL ATELE T baso (absolute) 0.0 x10e3 /uL 0.0-0. 2 Not Available [facility] ([facility]) [address] [place], [address], 08/10/2024 06:22:25 08/08/19 25 08/09/2024 CBC WITH DIFFE RENTI AL/PL ATELE T immature granulocytes 1 % notest ab. Not Available [facility] ([facility]) [address] [place], [address], 08/10/2024 06:22:25 08/08/19 25 08/09/2024 CBC WITH DIFFE RENTI AL/PL ATELE T immature grans (abs) 0.0 x10e3 /uL 0.0-0. 1 Not Available [facility] ([facility]) [address] [facility] [place], [address], 08/10/2024 06:22:25 02/07/20 25 02/07/2025 LIPID PANEL cholesterol, total 131 mg/dL 100-19 9 Not Available [facility] ([facility]) [address] [place], [address], 02/07/2025 13:12:55 02/07/20 25 02/07/2025 LIPID PANEL triglyceride s 82 mg/dL 0-149 Not Available [facility] ([facility]) [address] [place], [address], 02/07/2025 13:12:55 02/07/20 25 02/07/2025 LIPID PANEL HDL cholesterol 47 mg/dL >39 Not Available [facility] ([facility]) [address] [place], [address], 02/07/2025 13:12:55 02/07/20 25 02/07/2025 LIPID PANEL VLDL cholesterol miles 16 mg/dL 5-40 Not Available [facility] ([facility]) [address] [place], [address], 02/07/2025 13:12:55 02/07/20 25 02/07/2025 LIPID PANEL LDL chol calc ([facility]) 68 mg/dL 0-99 Not Available [facility] ([facility]) [address] [place], [address], 02/07/2025 13:12:55 02/07/20 25 02/07/2025 COMP. METAB OLIC PANEL (14) glucose 132 mg/dL 70-99 above high normal Not Available [facility] ([facility]) [address] [place], [address], 02/07/2025 13:12:56 02/07/20 25 02/07/2025 COMP. METAB OLIC PANEL (14) BUN 23 mg/dL 8-27 Not Available [facility] ([facility]) [address] [place], [address], 02/07/2025 13:12:56 02/07/20 25 02/07/2025 COMP. METAB OLIC PANEL (14) creatinine 0.89 mg/dL 0.76-1 .27 Not Available [facility] ([facility]) [address] [place], [address], 02/07/2025 13:12:56 02/07/20 25 02/07/2025 COMP. METAB OLIC PANEL (14) eGFR 85 mL/mi n/1.7 3 >59 Not Available [facility] ([facility]) [address] [place], [address], 02/07/2025 13:12:56 02/07/20 25 02/07/2025 COMP. METAB OLIC PANEL (14) BUN/creatini ne ratio 26 10-24 above high normal Not Available [facility] ([facility]) [address] [facility] [place], [address], 02/07/2025 13:12:56 02/07/20 25 02/07/2025 COMP. METAB OLIC PANEL (14) sodium 141 mmol/ L 134-14 4 Not Available [facility] [facility] [address] [facility] [place], [address], 02/07/2025 13:12:56 02/07/20 25 02/07/2025 COMP. METAB OLIC PANEL (14) potassium 4.6 mmol/ L 3.5-5. 2 Not Available [facility] ([facility]) [address] [facility] [place], [address], 02/07/2025 13:12:56 02/07/20 25 02/07/2025 COMP. METAB OLIC PANEL (14) chloride 103 mmol/ L 96-106 Not Available [facility] ([facility]) [address] [facility] [place], [address], 02/07/2025 13:12:56 02/07/20 25 02/07/2025 COMP. METAB OLIC PANEL (14) carbon dioxide, total 24 mmol/ L 20-29 Not Available [facility] ([facility]) [address] [facility], [place], [address], 02/07/2025 13:12:56 02/07/20 25 02/07/2025 COMP. METAB OLIC PANEL (14) calcium 9.3 mg/dL 8.6-10 .2 Not Available [facility] ([facility]) [address] [facility], [place], [address], 02/07/2025 13:12:56 02/07/20 25 02/07/2025 COMP. METAB OLIC PANEL (14) protein, total 6.3 g/dL 6.0-8. 5 Not Available [facility] ([facility]) [address] [place], [address], 02/07/2025 13:12:56 02/07/20 25 02/07/2025 COMP. METAB OLIC PANEL (14) albumin 4.1 g/dL 3.7-4. 7 Not Available [facility] ([facility]) [address] [place], [address], 02/07/2025 13:12:56 02/07/20 25 02/07/2025 COMP. METAB OLIC PANEL (14) globulin, total 2.2 g/dL 1.5-4. 5 Not Available [facility] ([facility]) [address] [place], [address], 02/07/2025 13:12:56 02/07/20 25 02/07/2025 COMP. METAB OLIC PANEL (14) bilirubin, total 0.3 mg/dL 0.0-1. 2 Not Available [facility] ([facility]) [address] [facility], [place], [address], 02/07/2025 13:12:56 02/07/20 25 02/07/2025 COMP. METAB OLIC PANEL (14) alkaline phosphatase 69 IU/L 44-121 Not Available [facility] ([facility]) [address] [facility], [place], [address], 02/07/2025 13:12:56 02/07/20 25 02/07/2025 COMP. METAB OLIC PANEL (14) AST (SGOT) 18 IU/L 0-40 Not Available [facility] ([facility]) [address] [facility], [place], [address], 02/07/2025 13:12:56 02/07/20 25 02/07/2025 COMP. METAB OLIC PANEL (14) ALT (SGPT) 9 IU/L 0-44 Not Available [facility] ([facility]) [address] [facility], [place], [address], 02/07/2025 13:12:56 02/07/20 25 02/07/2025 CBC WITH DIFFE RENTI AL/PL ATELE T WBC 6.5 x10e3 /uL 3.4-10 .8 Not Available [facility] ([facility]) [address] [place], [address], 02/07/2025 13:12:57 02/07/20 25 02/07/2025 CBC WITH DIFFE RENTI AL/PL ATELE T RBC 4.07 x10e6 /uL 4.14-5 .80 below low normal Not Available [facility] ([facility]) [address] [facility], [place], [address], 02/07/2025 13:12:57 02/07/20 25 02/07/2025 CBC WITH DIFFE RENTI AL/PL ATELE T hemoglobin 12.4 g/dL 13.0-1 7.7 below low normal Not Available [facility] ([facility]) [address] [place], [address], 02/07/2025 13:12:57 02/07/20 25 02/07/2025 CBC WITH DIFFE RENTI AL/PL ATELE T hematocrit 37.9 % 37.5-5 1.0 Not Available [facility] ([facility]) [address] [facility], [place], [address], 02/07/2025 13:12:57 02/07/20 25 02/07/2025 CBC WITH DIFFE RENTI AL/PL ATELE T MCV 93 fL 79-97 Not Available [facility] ([facility]) [address] [facility], [place], [address], 02/07/2025 13:12:57 02/07/2002/07/2025 CBC WITH DIFFE RENTI AL/PL ATELE T MCH 30.5 pg 26.6-3 3.0 Not Available [facility] ([facility]) [address] [place], [address], 02/07/2025 13:12:57 02/07/20 25 02/07/2025 CBC WITH DIFFE RENTI AL/PL ATELE T MCHC 32.7 g/dL 31.5-3 5.7 Not Available [facility] ([facility]) [address] [place], [address], 02/07/2025 13:12:57 02/07/20 25 02/07/2025 CBC WITH DIFFE RENTI AL/PL ATELE T RDW 12.4 % 11.6-1 5.4 Not Available [facility] ([facility]) [address] [place], [address], 02/07/2025 13:12:57 02/07/20 25 02/07/2025 CBC WITH DIFFE RENTI AL/PL ATELE T platelets 166 x10e3 /uL 150-45 0 Not Available [facility] ([facility]) [address] [facility], [place], [address], 02/07/2025 13:12:57 02/07/20 25 02/07/2025 CBC WITH DIFFE RENTI AL/PL ATELE T neutrophils 47 % notest ab. Not Available [facility] ([facility]) [address] [facility], [place], [address], 02/07/2025 13:12:57 02/07/20 25 02/07/2025 CBC WITH DIFFE RENTI AL/PL ATELE T lymphs 40 % notest ab. Not Available [facility] ([facility]) [address] [facility], [place], [address], 02/07/2025 13:12:57 02/07/20 25 02/07/2025 CBC WITH DIFFE RENTI AL/PL ATELE T monocytes 8 % notest ab. Not Available [facility] ([facility]) [address] [facility], [place], [address], 02/07/2025 13:12:57 02/07/20 25 02/07/2025 CBC WITH DIFFE RENTI AL/PL ATELE T eos 4 % notest ab. Not Available [facility] ([facility]) [address] [facility], [place], [address], 02/07/2025 13:12:57 02/07/20 25 02/07/2025 CBC WITH DIFFE RENTI AL/PL ATELE T basos 1 % notest ab. Not Available [facility] ([facility]) [address] [facility], [place], [address], 02/07/2025 13:12:57 02/07/20 25 02/07/2025 CBC WITH DIFFE RENTI AL/PL ATELE T neutrophils (absolute) 3.1 x10e3 /uL 1.4-7. 0 Not Available [facility] ([facility]) [address] [facility], [place], [address], 02/07/2025 13:12:57 02/07/20 25 02/07/2025 CBC WITH DIFFE RENTI AL/PL ATELE T lymphs (absolute) 2.6 x10e3 /uL 0.7-3. 1 Not Available [facility] ([facility]) [address] [facility], [place], [address], 02/07/2025 13:12:57 02/07/20 25 02/07/2025 CBC WITH DIFFE RENTI AL/PL ATELE T monocytes(ab solute) 0.5 x10e3 /uL 0.1-0. 9 Not Available [facility] ([facility]) [address] [facility], [place], [address], 02/07/2025 13:12:57 02/07/20 25 02/07/2025 CBC WITH DIFFE RENTI AL/PL ATELE T eos (absolute) 0.2 x10e3 /uL 0.0-0. 4 Not Available [facility] ([facility]) [address] [facility], [place], [address], 02/07/2025 13:12:57 02/07/20 25 02/07/2025 CBC WITH DIFFE RENTI AL/PL ATELE T baso (absolute) 0.0 x10e3 /uL 0.0-0. 2 Not Available [facility] ([facility]) [address] [facility], [place], [address], 02/07/2025 13:12:57 02/07/20 25 02/07/2025 CBC WITH DIFFE RENTI AL/PL ATELE T immature granulocytes 0 % notest ab. Not Available [facility] ([facility]) [address] [facility], [place], [address], 02/07/2025 13:12:57 02/07/20 25 02/07/2025 CBC WITH DIFFE RENTI AL/PL ATELE T immature grans (abs) 0.0 x10e3 /uL 0.0-0. 1 Not Available [facility] ([facility]) [address] [facility], [place], [address], 02/07/2025 13:12:57 02/07/20 25 02/07/2025 PROST ATE-S PECIF IC AG prostate specific Ag 1.1 NG/mL 0.0-4. 0 Armen ECLIA metho dolog y. Accor ding to the Ameri can [employer] g[employer] i[employer] n, Serum PSA shoul d decre ase and remai n at undet ectab le level s after radic al prost atect maggi. The AUA defin es bioch emica l recur rence as an initi al PSA value 0.2 ng/mL or great er follo wed by a subse quent confi rmato ry PSA value 0.2 ng/mL or great er. Value s obtai missy with diffe rent assay metho ds or kits canno t be used inter murrell ely . Resul ts canno t be inter prete d as absol estrella evide nce of the prese nce or absen ce of laya tafoya se. Not Available [facility] ([facility]) [address] [facility], [place], [address], 02/07/2025 13:12:59 05/27/20 24 11/19/2023 US, echoc ardio gram No observ ation record ed. [facility] [address], [place], [address], 05/29/2024 09:05:58 05/27/20 24 11/19/2023 US, echoc ardio gram No observ ation record ed. [facility] [address], [place], [address], 05/29/2024 09:05:06 Result Notes None recorded. Problems Name Problem SNOMED Code Status Onset Date Resolution Date Notes Provider Name and Address Organization Details Recorded Time Essential hypertension 00114670 Active 2023 Manoj Darnell MA null, [place] - [facility] 4 10:01:40 Hyperlipidemia 41163144 Active 2023 Manoj Darnell MA null, [place] - [facility] 4 10:01:48 Osteoarthritis 446395253 Active 2023 Manoj Darnell [place], [place] 4 10:02:04 Fall Active 2023 Manoj Darnell [place] null, [place] - [place] 4 10:09:23 Coronary atherosclerosi s 003047429 Active 2023 Davidson Rudolph MD Attn: Bouchra g,[address] [facility], [place], [address], [facility] - [facility] 4 22:27:03 Replacement of aortic valve Active 2023 Davidson Rudolph MD Attn: Bouchra g,[address] [facility], [place], [address], [facility] - [facility] 4 22:27:14 Problem Notes None recorded. Procedures Surgical History Date Name Laterality Status Provider Name and Address Organization Details Recorded Time procedure on heart valve completed Ann Davidson MA [facility] 09/28/2023 09:54:30 procedure on wrist completed Ann Davidson MA [facility] 09/28/2023 09:54:48 Imaging Results None recorded. Procedure Notes None recorded. Medical Equipment None Reported. Allergies No known drug allergies Medications Name Sig Start Date Stop Date Status Note LastModified by Organization Details LastModified Time amoxicillin 500 mg capsule TAKE 4 CAPSULES BY MOUTH 1 HOUR BEFORE DENTAL APPOINTMEN T active Not Available Not Available No t Available atorvastati n 10 mg tablet take 1 tablet daily active Not Available Not Available No t Available tamsulosin 0.4 mg capsule TAKE 1 CAPSULE BY MOUTH DAILY 2024 active Not Available Not Available Not Avai lable tadalafil 5 mg tablet TAKE 1 TABLET BY MOUTH DAILY active Not Available Not Available No t Available metoprolol tartrate 25 mg tablet active Not Available Not Available No t Available multivitami n Takes one a day active Not Available Not Available No t Available lutein 40 mg capsule Take 1 capsule every day by oral route. active Not Available Not Available No t Available metoprolol succinate ER 25 mg capsule sprinkle, ext. release 24 hr Take 1 capsule every day by oral route. active 4 pt states taking 12.5 mg BID, cb-rma Not Available Not Available Not Available aspirin 81 mg capsule Take 1 capsule every day by oral route. active Not Available Not Available No t Available Vitals Date Recorded Body height Body mass index (BMI) Body weight Heart rate Oxygen saturation Systolic And Diastolic Provider Name and Address Organization Details Last Updated DateTime 5 161.29 cm 29.4 kg/m2 65580.9 6 g 63 /min 96 % 170/60 mm[Hg] Maisha Zaragoza [facility] 5 10:57:35 Date Recorded Body height Oxygen saturation Heart rate Systolic And Diastolic Provider Name and Address Organization Details Last Updated DateTime 08/16/2024 161.29 cm 98 % 68 /min 150/70 mm[Hg] Maisha Zaragoza [facility] 08/16/2024 09:33:43 Date Recorded Body height Heart rate Oxygen saturation Systolic And Diastolic Provider Name and Address Organization Details Last Updated DateTime 09/13/2024 161.29 cm 70 /min 97 % 164/62 mm[Hg] Maisha Zaragoza [facility] 09/13/2024 13:56:13 Date Recorded Body height Body mass index (BMI) Body weight Heart rate Oxygen saturation Respiratory rate Systolic And Diastolic Provider Name and Address Organization Details Last Updated DateTime 5 161.29 cm 28.6 kg/m2 65754.1 5 g 86 /min 97 % 14 /min 124/62 mm[Hg] Samantha Garcia MA [facility] 5 10:09:27 Date Recorded Body height Body mass index (BMI) Body weight Heart rate Oxygen saturation Systolic And Diastolic Provider Name and Address Organization Details Last Updated DateTime 4 161.29 cm 28.2 kg/m2 89553.8 9 g 75 /min 97 % 122/66 mm[Hg] Samantha Garcia MA [facility] 4 10:16:55 Social History Question Answer Notes LastModified by Organizat ion Details LastModified Time Tobacco Smoking Status Never Smoker RAQUEL Camarena, [place] - [facility] 09/28/2023 09:53:06 Do You Have An Advance Directive? Yes JESUSITA Dubois Amie Moncho When Traveling, [facility] Information not available 09/28/2023 Are You Blind Or Do You Have Difficulty Seeing? No Information not available 03/28/2024 What Is Your Level Of Caffeine Consumption? Moderate Information not available 09/28/2023 In The 14 Days Before Symptom Onset, Have You Had Close Contact With A Laboratory-confir med COVID-19 While That Case Was Ill? No Information not available 03/28/2024 In The 14 Days Before Symptom Onset, Have You Had Close Contact With A Person Who Is Under Investigation For COVID-19 While That Person Was Ill? No Information not available 03/28/2024 Have You Been To An Area Known To Be High Risk For COVID-19? No Information not available 03/28/2024 Are You Deaf Or Do You Have Serious Difficulty Hearing? No Information not available 03/28/2024 What Type Of Diet Are You Following? REGULAR Information not available 03/28/2024 Are There Any Guns Present In Your Home? No Information not available 03/28/2024 What Was The Date Of Your Most Recent Tobacco Screening? 02/06/2025 Information not available 02/06/2025 What Is Your Relationship Status? Domestic Partner Information not available 09/28/2023 Do You Use Your Seat Belt Or Car Seat Routinely? Yes Information not available 09/28/2023 Do You Have Smoke And Carbon Monoxide Detectors In Your Home? Yes Information not available 09/28/2023 Do You Use Sunscreen Routinely? Yes Information not available 09/28/2023 Has Tobacco Cessation Counseling Been Provided? No Information not available 03/28/2024 On What Date Was Tobacco Cessation Counseling Provided? 02/06/2025 Information not available 02/06/2025 Sex: Male Functional Status Question Answer Note LastModified by Organizat ion Details LastModified Time Do you use any illicit or recreational drugs? No Information not available 09/28/2023 Do you or have you ever used any other forms of tobacco or nicotine? No Information not available 09/28/2023 What is your level of alcohol consumption? Occasional Information not available 09/28/2023 Are you currently employed? No Information not available 03/28/2024 Are you able to care for yourself independently? Yes Information not available 03/28/2024 What is your exercise level? None Information not available 03/28/2024 Mental Status None recorded. Family History Relationship Description Onset Age of this Age Resolved Age Notes LastModified by Organization Details LastModified Time Mother Heart disease 62 [email or web address] Not available 09/03 09:52:39 Notes:No new family history, me/rma Medical History Condition Response High Blood Pressure Y Thyroid Problems N Kidney or Bladder Problems N GI Problems N Blood Clots N Depression N Heart Attack ([place]) N Diabetes N Anxiety Disorder N Seizures/Epilepsy N Cancer Y Stroke N Asthma N High Cholesterol N Hepatitis N Liver Disease N Heart Failure N Immunizations Vaccine Type Date Status Note Provider Nam e and Address Organization Details Recorded Time Influenza, split virus, quadrivalent, PF 05/18/2018 completed Not Available [facility] 5 09:52:33 COVID-19, mRNA, LNP-S, PF, 100 mcg/0.5mL dose or 50 mcg/0.25mL dose 09/12/2020 completed Not Available [facility] 5 09:52:33 COVID-19, mRNA, LNP-S, PF, 100 mcg/0.5mL dose or 50 mcg/0.25mL dose 10/01/2020 completed Not Available [facility] 5 09:52:33 COVID-19, mRNA, LNP-S, PF, 100 mcg/0.5mL dose or 50 mcg/0.25mL dose 10/21/2020 completed Not Available [facility] 5 09:52:33 Influenza, adjuvanted, quadrivalent, PF 05/23/2021 completed Not Available [facility] 5 09:52:33 COVID-19, mRNA, LNP-S, PF, 30 mcg/0.3 mL dose 06/05/2021 completed Not Available [facility] 09:52:33 Influenza, split virus, quadrivalent, PF 04/27/2022 completed Not Available [facility] 09:52:33 Influenza, high-dose, quadrivalent, PF 05/25/2023 completed Not Available [facility] 09:52:33 Influenza, high-dose, trivalent, PF 05/24/2024 completed Not Available [facility] 2024 09:52:33 Past Encounters Encounter ID Performer Location Encounter Start Date Encounter Closed Date Diagnosis/Indication Diagnosis SNOMED-CT Code Diagnosis ICD10 Code Diagnosis IMO Codes Diagnosis Note [id number] MD [facility] (Adult Med) [address] [place] [id number] 09/28/2023 09:31:20 09/28/2023 10:31:42 Essential hypertension 03732176 I10 Screening for malignant neoplasm of prostate 370212587 Z12.5 Hyperlipidemia 86762274 E78.5 Osteoarthritis 643074253 M19.90 [id number] Davidson Rudolph MD [facility] (Adult Med) [address] [place] [id number] 12/01/2023 10:00:21 12/01/2023 10:22:38 Fall W19.XXXA [id number] Davidson Rudolph MD [facility] (Adult Med) [address] [place] [phone] 03/28/2024 10:02:36 03/28/2024 11:08:07 Essential hypertension 53903219 I10 Hyperlipidemia 68938977 E78.5 Osteoarthritis 426715553 M19.90 Coronary atherosclerosis 352200675 I25.10 [id number] MD [facility] (Adult Med) [address] [place] [id number] 08/08/2024 10:37:20 08/08/2024 11:44:16 Body mass index 25-29 - overweight 649188328 Z68.29 Overweight 066994959 E66 .3 Essential hypertension 38519978 I10 Hyperlipidemia 35850441 E78.5 Coronary atherosclerosis 793586154 I25.10 [id number] Davidson Rudolph MD [facility] (Adult Med) [address] [place] [phone] 08/16/2024 09:24:01 08/16/2024 10:03:31 Essential hypertension 79632395 I10 [id number] Davidson Rudolph MD [facility] (Adult Med) [address] [place] [id number] 09/13/2024 13:04:36 09/13/2024 14:15:03 Essential hypertension 58474731 I10 [id number] Davidson Rudolph MD [facility] (Adult Med) [address] [place] [phone] 02/06/2025 09:51:12 02/06/2025 10:36:32 Overweight in adulthood with body mass index of 25 or more but less than 30 223928725 E66.3 Z68.28 8614854538 BMI 28.6 Essential hypertension 29882866 I10 Screening for malignant neoplasm of prostate 243683457 Z12.5 538549 Hyperlipidemia 67824076 E78.5 Coronary atherosclerosis 082010970 I25.10 Osteoarthritis 401217435 M19.90 Health Concerns Section Related Observation LastModified by Organization Detai ls LastModified Time None Recorded Concern Status LastModified by Organization Details LastModified Time None Recorded Advance Directives Directive Y: JESUSITA Rosario Mirza Ivan when traveling, -a Payers Insurance Date Sequence Insurance Name Policy Number Policy Collins Covered Member ID Collins Member ID Guarantor Name 03/05/2025 1 [facility] (MEDICARE REPLACEMENT/A DVANTAGE - HMO) [id number] David De Leon [id number] David De Leon Notes Date Note Type Note Provider Name and Address Organization Details Recorded Time 03/28/2024 text/html Patient comes in for regular follow-up. . BPH stable dyslipidemia taking atorvastatin hypertension doing well on current medical regimen history of valve replacement no chest pain shortness of breath or palpitations Davidson Rudolph MD Attn: Accounting[address] [place], [address], [facility] 03/28/2024 22:28:10 08/08/2024 text/html hypertension blood pressure is up-to-date does not understand it says he has never had problems like this and he feels fine. At home says readings have been doing okay. Hyperlipidemia taking his medication trying to be smart with his diet. CAD there is no chest pain or shortness of breath. History of aortic valve replacement no chest pain shortness of breath or palpitations Davidson Rudolph MD Attn: [address] [facility], [place], [address], [facility] 08/21/2024 17:45:04 02/06/2025 text/html Patient comes in for regular follow-up. . BPH stable dyslipidemia taking atorvastatin hypertension doing well on current medical regimen history of valve replacement no chest pain shortness of breath or palpitations Davidson Rudolph MD Attn: Accounting,[address] [facility], [place], [address], [facility] 03/04/2025 21:37:15
[2025-06-22 10:19] LABS: Anion Gap 5 mmol/L (4-12); Blood Urea Nitrogen 20 mg/dL (9-20); Calcium 9.0 mg/dL (8.4-10.2); Carbon Dioxide 30 mmol/L (22-30); Chloride 102 mmol/L (98-107); Estimated Glomerular Filt Rate > 60; Glucose 119 mg/dL (65-110); Potassium 4.6 mmol/L (3.4-5.0); Sodium 137 mmol/L (137-145)
== END 2025-06-22 09:34 | disposition home or self-care (01) ==
PROVIDERS: PCP Internal Medicine; Visit Provider Internal Medicine Cardiovascular Disease
DX: I25.10 Atherosclerotic heart disease of native coronary artery without angina pectoris (principal); Z13.9 Encounter for screening, unspecified
CPT/HCPCS: 36415; 80048